=== PATIENT | male | born 1970 | race Caucasian/White ===

== ENCOUNTER 2020-05-31 04:00 | Emergency (ER) | payer MEDICARE, MEDICAID, SELFPAY ==
--- NOTE | ~2020-05-31 | XR_ITS ---
EXAMINATION: XR forearm LT 2V INDICATION: Left forearm pain TECHNIQUE: Two views of the left forearm are obtained. COMPARISON: None available FINDINGS: There is no fracture, dislocation, or subluxation. The bones and joint spaces are normal. T here is mild soft tissue swelling of the forearm. IMPRESSION: 1. Soft tissue swelling without acute osseous abnormality. Reviewed, dictated and finalized at location A. [facility]
[2020-05-31 04:09] VITALS: BP 225/106; PULSE 97; RESP 20; O2SAT 97
[2020-05-31] MEDS: TETANUS,DIPHTHERIA,AC PERTUSSIS ADULT (0.5 ML) BOOSTRIX IM (04:26)
--- NOTE | 2020-05-31 04:27 | ED.GENADULT ---
HPI - General Adult General Chief complaint: Unspecified Stated complaint: fell on ice 1 week ago, sore throat Time Seen by Provider: 05/31/20 04:03 Source: patient Mode of arrival: ambulatory Limitations: no limitations History of Present Illness HPI narrative: This patient is a 49 year old male who presents for evaluation of his left arm after a fell. He states last week he fell due to slipping on ice. He hits his left forearm. He reports his left forearm has been bruised but it is resolving. He reports mild tenderness but it is improving. He states he has history of bursitis so he wanted to get checked since he never sought evaluation after the fall. He states he never had pain or swelling to his elbow but he wanted to make sure he does not have bursiting. He denies LOC due to fall. He also states he has sore throat whenever he vapes so he wanted to get checked out since he was in ER. He denies pain with swallowing. HE denies fever or chills. He denies cough, sob, URI. He denies sore throat currently. Last tetanus was 10 years ago. Related Data Allergies Allergy/AdvReac Type Severity Reaction Status Date / Time No Known Allergies Allergy Unknown Verified 10/30/19 10:52 No Known Allergies Allergy Uncoded 10/30/19 10:52 Review of Systems Review of Systems: All systems reviewed & are unremarkable except as noted in HPI and below ENT: Denies hoarseness and Denies lip swelling Cardiovascular: Cardiovascular: Denies chest pain at rest and Denies chest pain with activity Respiratory: Respiratory: Reports no additional respiratory complaints Gastrointestinal: Gastrointestinal: Reports no additional gastrointestinal complaints PMFSH Past Medical History Medical History (Updated 05/31/20 @ 04:45 by Wanda Davis MD) Hypertension Panic disorder Surgical History Surgical History (Updated 05/31/20 @ 04:39 by Wanda Davis MD) Hx of appendectomy Social History Social History (Updated 05/31/20 @ 04:39 by Wanda Davis MD) Tobacco type: e-cigarettes/vaping Exam Narrative: Exam Narrative: GENERAL: Well-appearing, well-nourished, and in no acute distress. HEAD: Normocephalic, atraumatic EYES: PERRLA and EOMI, conjunctiva clear without discharge THROAT:Mucous membranes moist, Oropharynx normal without erythema, exudate, peritonsillar swelling or fluctuance NECK: Supple, without lymphadenopathy or mass RESPIRATORY: No respiratory distress, Airway patent, Respirations non-labored, Clear to auscultation without rales, rhonchi or wheeze HEART: Regular rate and rhythm. No murmur heard. Normal peripheral pulses. ABDOMEN: Soft, nontender, nondistended, normal active bowel sounds. No masses. No rebound or guarding, No organomegaly. EXTREMITIES: No edema, normal strength with full range of motion. left forearm dorsum with ecchymosis and scabbed over healing wound, no surrounding erythema, no swelling at elbow, no tenderness or erythema at elbow. SKIN: Warm, dry, normal color without rash NEURO: Alert and oriented x3. CN 2-12 grossly intact. No focal deficits. PSYCH: Normal mood , anxious HENMT: Ears: TM abnormal obstructed by cerumen Course Reevaluation(s) Reevaluation #1: Patient has hypertension. HE states his blood pressure is high because he is anxious Date: 05/31/20 Time: 04:10 Vital Signs Vital signs: Vital Signs Pulse Rate 97 05/31/20 04:09 Respiratory Rate 20 05/31/20 04:09 Blood Pressure 225/106 H 05/31/20 04:09 Pulse Oximetry 97 05/31/20 04:09 Pulse Rate 87 05/31/20 04:53 Respiratory Rate 20 05/31/20 04:53 Blood Pressure 177/109 H 05/31/20 04:53 Pulse Oximetry 98 05/31/20 04:53 Medical Decision Making Vital Signs Vital Signs: Vital Signs Pulse Rate 97 05/31/20 04:09 Respiratory Rate 20 05/31/20 04:09 Blood Pressure 225/106 H 05/31/20 04:09 Pulse Oximetry 97 05/31/20 04:09 Pulse Rate 87 05/31/20 04:53
[2020-05-31 04:53] VITALS: BP 177/109; PULSE 87; RESP 20; O2SAT 98
== END 2020-05-31 05:11 | disposition home or self-care (01) ==
PROVIDERS: Emergency Provider General Practice; PCP Student in an Organized Health Care Education/Training Program
DX: S50.12XA Contusion of left forearm, initial encounter (principal); J02.9 Acute pharyngitis, unspecified; F17.290 Nicotine dependence, other tobacco product, uncomplicated; W00.0XXA Fall on same level due to ice and snow, initial encounter; Z23 Encounter for immunization; I10 Essential (primary) hypertension
CPT/HCPCS: 73090; 87880; 90471; 90715; 99283

== ENCOUNTER 2021-08-01 23:39 | Emergency (ER) | payer MEDICARE, MEDICAID, SELFPAY ==
--- NOTE | ~2021-08-01 | XR_ITS ---
EXAMINATION: XR chest 2V DATE: 08/02/2021 00:43 INDICATION: Shortness of breath TECHNIQUE: PA and lateral views of the chest were obtained. COMPARISON: Chest radiograph dated 05/21/2015 FINDINGS: Minimal streaky atelectasis at the lung bases. No pulmonary edema, pleural effusion or pneumothorax. IMPRESSION: 1. Minimal streaky bibasilar atelectasis. Reviewed, dictated and finalized at location A.
[2021-08-01 23:46] VITALS: BP 152/97; PULSE 76; RESP 20; TEMP 36.6; O2SAT 98
--- NOTE | 2021-08-01 23:47 | ECG_ITS ---
Measurements Intervals [place] Rate: 76 P: 62 [place]: 164 QRS: 37 QRSD: 88 T: -4 QT: 385 QTc: 434 Interpretive Statements SINUS RHYTHM NORMAL ECG NO PREVIOUS ECG AVAILABLE FOR COMPARISON Electronically Signed On 08-02-2021 7:31:09 CDT by Asher Pérez M.D.
[2021-08-01 23:54] VITALS: PULSE 73
[2021-08-01 23:57] VITALS: O2SAT 98
[2021-08-02 00:37] LABS: Basophils Absolute Auto 0.1 K/mm3 (0.0-0.1); Basophils Percent Auto 0.7 % (0.2-1.2); Eosinophils Absolute Auto 0.2 K/mm3 (0-0.3); Eosinophils Percent Auto 1.4 % (0-4.4); Hematocrit 48.1 % (42.0-52.0); Hemoglobin 16.3 g/dL (14.0-18.0); Immature Granulocyte Absolute 0.09 K/mm3 (0.00-0.031); Immature Granulocyte Percent A 0.7 % (0-0.5); Lymphocytes Absolute Auto 4.93 K/mm3 (0.9-3.2); Lymphocytes Percent Auto 38.1 % (18.3-44.2); Mean Corpuscular HGB Conc 33.9 g/dl (32-36); Mean Corpuscular Hemoglobin 33.5 pg (26-34); Mean Corpuscular Volume 98.8 fl (80-100); Mean Platelet Volume 11.2 fl (7.4-10.4); Monocytes Absolute Auto 0.8 K/mm3 (0.1-0.6); Neutrophils Absolute Auto 6.9 K/mm3 (1.3-6.7); Neutrophils Percent Auto 53.1 % (45.5-73.1); Platelet Count Result 297 k/mm3 (150-375); Red Blood Count 4.87 M/mm3 (4.6-6.20); Red Cell Distribution Width 12.3 % (11.5-14.5); White Blood Count 12.9 K/mm3 (4.5-10.0)
[2021-08-02 00:51] LABS: Alanine Aminotransferase 115 U/L (4-50); Albumin Level 4.7 g/dL (3.5-5.1); Alkaline Phosphatase 109 U/L (38-126); Anion Gap 10 mmol/L (8-16); Aspartate Amino Transferase 73 U/L (17-59); Bilirubin,Total 0.4 mg/dL (0.2-1.3); Blood Urea Nitrogen 14 mg/dL (9-20); Calcium 9.4 mg/dL (8.4-10.2); Carbon Dioxide 25 mmol/L (22-30); Chloride 105 mmol/L (98-107); Estimated CRCL calculation 98 ml/min; Estimated Glomerular Filt Rate > 60; Glucose 106 mg/dL (65-110); Potassium 3.8 mmol/L (3.4-5.0); Sodium 140 mmol/L (137-145)
[2021-08-02 01:03] LABS: Troponin I < 0.012 ng/mL (0.000-0.034)
[2021-08-02] MEDS: LORazepam (*CRX) 0.5 MG TABLET PO (01:27)
[2021-08-02 01:32] VITALS: BP 165/83; PULSE 88; RESP 20; O2SAT 96
--- NOTE | 2021-08-02 01:36 | ED.SOB ---
HPI - SOB/Dyspnea General Chief Complaint: Shortness of Breath/Dyspnea Stated Complaint: Difficulty breathing Time Seen by Provider: 08/01/21 23:58 Source: patient History of Present Illness HPI Narrative: Patient presents with shortness of breath. Reports that shortness of breath throughout the day he his anxiety medication and does not seem to be helping so he came to the ER for further evaluation. Reports a history of anxiety and feels like his shortness of breath is related to his anxiety and panic attacks. Denies any chest pain lightheadedness or dizziness he describes a sensation of not being able to get enough air. Denies any recent cough, congestion, fevers. Reports he was in his usual state of today. Is unable to identify any clear stressors or aggravators for his symptoms today. Related Data Home Medications Medication Instructions Recorded Confirmed citalopram 40 mg tablet 40 mg PO DAILY 06/21/20 08/02/21 clonazepam 1 mg tablet 1 mg PO TID 06/21/20 08/02/21 metoprolol succinate 100 mg 100 mg PO DAILY 06/21/20 08/02/21 tablet,extended release 24 hr olanzapine 10 mg tablet 10 mg PO DAILY 06/21/20 08/02/21 Allergies Allergy/AdvReac Type Severity Reaction Status Date / Time No Known Allergies Allergy Unknown Verified 06/20/20 09:13 No Known Allergies Allergy Uncoded 06/20/20 09:13 Review of Systems Review of Systems: CONSTITUTIONAL: Denies fever, chills, or sweats. EYES: Denies visual changes, redness, or discharge. ENT: Denies rhinorrhea, congestion, sore throat, or otalgia. CARDIOVASCULAR: Denies chest pain, palpitations, or edema. RESPIRATORY: Denies cough. GASTROINTESTINAL: Denies abdominal pain, nausea, vomiting, or diarrhea. GENITOURINARY: Denies dysuria or hematuria. SKIN: Denies rash or itching. MUSCULOSKELETAL: Denies back pain, joint pain, or myalgia. NEUROLOGIC: Denies headache, numbness, dizziness, or weakness. PSYCHIATRIC: Reports feeling anxious All systems reviewed & are unremarkable except as noted in HPI and below PMFSH Past Medical History Medical History Hypertension Panic disorder Surgical History Surgical History Hx of appendectomy Social History Social History Smoking status: Current every day smoker Tobacco type: e-cigarettes/vaping Alcohol intake: never Substance use: never Substance use type: does not use Course Reevaluation(s) Reevaluation #1: Patient is feeling much better chest x-ray read is pending patient refused to wait for results and left AMA. Vital Signs Vital signs: Vital Signs Temperature 36.6 C 08/01/21 23:46 Pulse Rate 76 08/01/21 23:46 Respiratory Rate 20 08/01/21 23:46 Blood Pressure 152/97 H 08/01/21 23:46 Pulse Oximetry 98 08/01/21 23:46 Temperature 36.6 C 08/01/21 23:46 Pulse Rate 88 08/02/21 01:32 Respiratory Rate 20 08/02/21 01:32 Blood Pressure 165/83 H 08/02/21 01:32 Pulse Oximetry 96 08/02/21 01:32 MDM - SOB/Dyspnea MDM Narrative Medical decision making narrative: H&P as above, vss, pt looks clinically well, exam with clear lungs, labs clinically unremarkable, img without acute process, additional labs/img considered, symptomatic relief available as needed, on reevaluation pt continues to looks clinically well. Suspect symptoms were related to anxiety, dns severe sepsis, severe dehydration, PE, dissection. Lab Data Result diagrams: 08/02/21 00:31 08/02/21 00:31 Labs: Lab Results 08/02/21 08/02/21 Range/Units 00:31 00:31 WBC 12.9 H (4.5-10.0) K/mm3 RBC 4.87 (4.6-6.20) M/mm3 Hgb 16.3 (14.0-18.0) g/dL Hct 48.1 (42.0-52.0) % MCV 98.8 (80-100) fl MCH 33.5 (26-34) pg MCHC 33.9 (32-36) g/dl RDW 12.3 (11.5-14.5) % Plt Count 297 (150-375) k/mm3 MPV 11.2 H (7.4-10
--- NOTE | 2021-08-02 01:42 | PC.NURSE ---
Pt requesting to leave pt states I just want to get home to my bed . RN informed MD of pt's request MD is waiting on the chest xray. RN informed pt of testing still to result pt does not want to wait. RN gave risk to pt and including risk of increased anxiety, increased sob, with testing still to result possible . Pt understands and repeats risk to RN. Pt aox3 going to [address] home.
== END 2021-08-02 01:45 | disposition left against medical advice (07) ==
LOC: ANHED 08-02 00:14
PROVIDERS: Emergency Provider Emergency Medicine; PCP Student in an Organized Health Care Education/Training Program
DX: R06.02 Shortness of breath (principal); I10 Essential (primary) hypertension; F41.0 Panic disorder [episodic paroxysmal anxiety]; F17.290 Nicotine dependence, other tobacco product, uncomplicated
CPT/HCPCS: 36415; 71046; 80053; 84484; 85025; 93005; 99284; A9270

== ENCOUNTER 2021-10-06 13:07 | Emergency (ER) | payer MEDICARE, MEDICAID, SELFPAY ==
--- NOTE | ~2021-10-06 | XR_ITS ---
EXAMINATION: XR chest 2V DATE: 10/06/2021 14:12 INDICATION: Shortness of breath. TECHNIQUE: Frontal and lateral views of the chest were obtained. COMPARISON: Chest 2 views 08/02/2021, CT abdomen and pelvis 05/21/2015 FINDINGS: The chest demonstrates clear lungs without pneumonia, pleural effusion, or pneumothorax. Th e heart size is normal. IMPRESSION: 1. No acute cardiopulmonary disease. Reviewed, dictated and finalized at location A.
[2021-10-06 13:23] VITALS: BP 144/93; PULSE 88; RESP 18; TEMP 36.6; O2SAT 98
--- NOTE | 2021-10-06 13:27 | ECG_ITS ---
Measurements Intervals [place] Rate: 81 P: 58 [place]: 152 QRS: 50 QRSD: 83 T: 31 QT: 367 QTc: 426 Interpretive Statements SINUS RHYTHM BORDERLINE T WAVE ABNORMALITY- INFERIOR LEADS BORDERLINE ECG Electronically Signed On 10-06-2021 13:34:00 CDT by Thaddeus Damian D.O.
[2021-10-06 13:51] LABS: Basophils Absolute Auto 0.1 K/mm3 (0.0-0.1); Basophils Percent Auto 0.5 % (0.2-1.2); Eosinophils Absolute Auto 0.1 K/mm3 (0-0.3); Eosinophils Percent Auto 1.3 % (0-4.4); Hematocrit 44.8 % (42.0-52.0); Hemoglobin 15.8 g/dL (14.0-18.0); Immature Granulocyte Absolute 0.07 K/mm3 (0.00-0.031); Immature Granulocyte Percent A 0.7 % (0-0.5); Lymphocytes Absolute Auto 2.59 K/mm3 (0.9-3.2); Lymphocytes Percent Auto 25.3 % (18.3-44.2); Mean Corpuscular HGB Conc 35.3 g/dl (32-36); Mean Corpuscular Hemoglobin 33.3 pg (26-34); Mean Corpuscular Volume 94.3 fl (80-100); Mean Platelet Volume 10.6 fl (7.4-10.4); Monocytes Absolute Auto 0.8 K/mm3 (0.1-0.6); Monocytes Percent Auto 7.6 % (2.6-8.5); Neutrophils Absolute Auto 6.6 K/mm3 (1.3-6.7); Neutrophils Percent Auto 64.6 % (45.5-73.1); Platelet Count Result 219 k/mm3 (150-375); Red Blood Count 4.75 M/mm3 (4.6-6.20); Red Cell Distribution Width 12.2 % (11.5-14.5); White Blood Count 10.2 K/mm3 (4.5-10.0)
[2021-10-06 13:56] LABS: Alanine Aminotransferase 68 U/L (6-50); Albumin Level 4.7 g/dL (3.5-5.1); Alkaline Phosphatase 101 U/L (38-126); Anion Gap 9 mmol/L (8-16); Aspartate Amino Transferase 44 U/L (17-59); Bilirubin,Total 0.5 mg/dL (0.2-1.3); Blood Urea Nitrogen 12 mg/dL (9-20); Calcium 9.3 mg/dL (8.4-10.2); Carbon Dioxide 25 mmol/L (22-30); Chloride 103 mmol/L (98-107); Estimated CRCL calculation 136 ml/min; Estimated Glomerular Filt Rate > 60; Glucose 102 mg/dL (65-110); Potassium 4.4 mmol/L (3.4-5.0); Sodium 137 mmol/L (137-145)
[2021-10-06 15:18] VITALS: BP 165/98; PULSE 111; RESP 18; TEMP 36.4; O2SAT 93
--- NOTE | 2021-10-06 16:02 | PC.NURSE ---
called at 1600, no answer.
== END 2021-10-06 16:14 | disposition left against medical advice (07) ==
LOC: ANHED 16:13
PROVIDERS: Emergency Provider Emergency Medicine; PCP Student in an Organized Health Care Education/Training Program
DX: R06.02 Shortness of breath (principal)
CPT/HCPCS: 36415; 71046; 80053; 85025; 93005; 99199

== ENCOUNTER 2021-10-06 16:41 | Emergency (ER) | payer MEDICARE, MEDICAID, SELFPAY ==
[2021-10-06] VITALS (11 sets, daily range): BP systolic 149–174; BP diastolic 68–103; PULSE 75–81; RESP 14–26; TEMP 36.2; O2SAT 95–100
--- NOTE | ~2021-10-06 | XR_ITS ---
EXAMINATION: XR chest 2V DATE: 10/06/2021 19:18 INDICATION: Shortness of breath. TECHNIQUE: Frontal and lateral views of the chest were obtained. COMPARISON: Chest 2 views 10/06/2021, CT abdomen and pelvis 05/21/2015 FINDINGS: The chest demonstrates clear lungs without pneumonia, pleural effusion, or pneumothorax. Th e heart size is normal. IMPRESSION: 1. No acute cardiopulmonary disease. Reviewed, dictated and finalized at location A.
--- NOTE | 2021-10-06 18:58 | ED.GENADULT ---
HPI - General Adult General Chief complaint: Shortness of Breath/Dyspnea <ANURAG Paz Last Filed: 10/07/21 03:32> Stated complaint: shortness of breath <ANURAG Paz Last Filed: 10/07/21 03:32> Time Seen by Provider: 10/06/21 18:41 <ANURAG Paz Last Filed: 10/07/21 03:32> Source: patient, family and old records reviewed <ANURAG Paz Last Filed: 10/07/21 03:32> Mode of arrival: ambulatory <ANURAG Paz Last Filed: 10/07/21 03:32> Limitations: no limitations <ANURAG Paz Last Filed: 10/07/21 03:32> History of Present Illness HPI narrative: Patient is a 51-year-old male who presents to the ED via EMS with report of anxiety and shortness of breath. Patient has a history of severe anxiety and a mood disorder to which he is disabled. Family member at bedside reports over the last 2 and half years he has been struggling with severe anxiety with breathing episodes and can hardly leave the house or drive a car. He takes Celexa and Zyprexa daily. Also takes Klonopin 3 times a day. He states he has been taking this as directed for his anxiety, but denies any improvement. He reports feeling like he cannot breathe due to his anxiety. Denies pain with taking a deep breath. Denies any identifiable stressors or causes of his increased anxiety today. Denies any chest pain, recent cough or cold symptoms, abdominal pain, nausea, vomiting, fever, chills, headache. Per patient's records, he was seen in the ED in July for similar symptoms. He was given PO Ativan and felt better. He left AMA at that time. <ANURAG Paz Last Filed: 10/07/21 03:32> Related Data Home medications: Home Medications Medication Instructions Recorded Confirmed citalopram 40 mg tablet 40 mg PO DAILY 06/21/20 08/02/21 clonazepam 1 mg tablet 1 mg PO TID 06/21/20 08/02/21 metoprolol succinate 100 mg 100 mg PO DAILY 06/21/20 08/02/21 tablet,extended release 24 hr olanzapine 10 mg tablet 10 mg PO DAILY 06/21/20 08/02/21 <Ramona Anglin PA-C - Last Filed: 10/07/21 03:32> Allergies/adverse reactions: Allergies Allergy/AdvReac Type Severity Reaction Status Date / Time No Known Allergies Allergy Unknown Verified 06/20/20 09:13 No Known Allergies Allergy Uncoded 06/20/20 09:13 <Ramona Anglin PA-C - Last Filed: 10/07/21 03:32> Review of Systems Review of Systems: CONSTITUTIONAL: Denies fever, chills. ENT: Denies rhinorrhea, congestion. CARDIOVASCULAR: Denies chest pain. RESPIRATORY: Reports difficulty breathing. Denies pain with inspiration, cough. GASTROINTESTINAL: Denies abdominal pain, nausea, vomiting, or diarrhea. GENITOURINARY: Denies dysuria or hematuria. MUSCULOSKELETAL: Denies back pain. NEUROLOGIC: Denies headache. PSYCHIATRIC: Reports severe anxiety. Denies depression. <Ramona Anglin PA-C - Last Filed: 10/07/21 03:32> All systems reviewed & are unremarkable except as noted in HPI and below <Ramona Anglin PA-C - Last Filed: 10/07/21 03:32> [facility] Past Medical History Medical History: Medical History Anxiety Hypertension Mood disorder Panic disorder <Ramona Anglin PA-C - Last Filed: 10/07/21 03:32> Surgical History Surgical History: Surgical History Hx of appendectomy <Ramona Anglin PA-C - Last Filed: 10/07/21 03:32> Social History Social History: Social History Smoking status: Current every day smoker Tobacco type: e-cigarettes/vaping Alcohol intake: never Substance use: never Substance use type: does not use <Ramona Anglin PA-C - Last Filed: 10/07/21 03:32> Exam Narrative: GENERAL: Very anxious appearing, well-nourished, non-toxic, in no acute distress. HEAD: Normocephalic, atraumatic. NECK: Supple. No estrella
--- NOTE | 2021-10-06 19:05 | ECG_ITS ---
Measurements Intervals [place] Rate: 74 P: 47 ND: 136 QRS: 54 QRSD: 86 T: 44 QT: 374 QTc: 417 Interpretive Statements SINUS RHYTHM BASELINE ARTIFACT- I, II, III, AVR, AVL, AVF BORDERLINE ECG Electronically Signed On 10-06-2021 20:41:34 CDT by Thaddeus Damian D.O.
[2021-10-06] MEDS: LORazepam (*CRX) 0.5 MG TABLET PO (19:34)
[2021-10-06 19:36] LABS: Basophils Absolute Auto 0.1 K/mm3 (0.0-0.1); Basophils Percent Auto 0.5 % (0.2-1.2); Eosinophils Absolute Auto 0.2 K/mm3 (0-0.3); Eosinophils Percent Auto 1.3 % (0-4.4); Hematocrit 47.1 % (42.0-52.0); Immature Granulocyte Absolute 0.07 K/mm3 (0.00-0.031); Immature Granulocyte Percent A 0.5 % (0-0.5); Lymphocytes Absolute Auto 3.15 K/mm3 (0.9-3.2); Lymphocytes Percent Auto 24.7 % (18.3-44.2); Mean Corpuscular Hemoglobin 32.5 pg (26-34); Mean Corpuscular Volume 95.5 fl (80-100); Mean Platelet Volume 10.6 fl (7.4-10.4); Monocytes Absolute Auto 0.7 K/mm3 (0.1-0.6); Monocytes Percent Auto 5.4 % (2.6-8.5); Neutrophils Absolute Auto 8.6 K/mm3 (1.3-6.7); Neutrophils Percent Auto 67.6 % (45.5-73.1); Platelet Count Result 259 k/mm3 (150-375); Red Blood Count 4.93 M/mm3 (4.6-6.20); Red Cell Distribution Width 12.5 % (11.5-14.5); White Blood Count 12.8 K/mm3 (4.5-10.0)
[2021-10-06 19:45] LABS: Alanine Aminotransferase 73 U/L (6-50); Albumin Level 5.1 g/dL (3.5-5.1); Alkaline Phosphatase 111 U/L (38-126); Anion Gap 11 mmol/L (8-16); Aspartate Amino Transferase 45 U/L (17-59); Bilirubin,Total 0.5 mg/dL (0.2-1.3); Blood Urea Nitrogen 11 mg/dL (9-20); Calcium 9.7 mg/dL (8.4-10.2); Carbon Dioxide 24 mmol/L (22-30); Chloride 102 mmol/L (98-107); Estimated CRCL calculation 136 ml/min; Estimated Glomerular Filt Rate > 60; Glucose 93 mg/dL (65-110); Potassium 4.2 mmol/L (3.4-5.0); Sodium 137 mmol/L (137-145)
[2021-10-06 19:57] LABS: Troponin I < 0.012 ng/mL (0.000-0.034)
== END 2021-10-06 20:22 | disposition home or self-care (01) ==
PROVIDERS: Physician Assistant; Emergency Provider Emergency Medicine; PCP Student in an Organized Health Care Education/Training Program
DX: F41.9 Anxiety disorder, unspecified (principal); R06.81 Apnea, not elsewhere classified; F39 Unspecified mood [affective] disorder; I10 Essential (primary) hypertension; F17.290 Nicotine dependence, other tobacco product, uncomplicated
CPT/HCPCS: 36415; 71046; 80053; 84484; 85025; 93005; 99199; 99284; A9270

== ENCOUNTER 2021-10-06 22:01 | Emergency (ER) | payer MEDICARE, MEDICAID, SELFPAY ==
[2021-10-06 22:03] VITALS: BP 167/93; PULSE 94; RESP 14; TEMP 36.2; O2SAT 99
== END 2021-10-06 22:40 | disposition left against medical advice (07) ==
LOC: ANHED 22:11
PROVIDERS: PCP Student in an Organized Health Care Education/Training Program
DX: R06.02 Shortness of breath (principal)
CPT/HCPCS: 99199

== ENCOUNTER 2021-10-11 16:19 | Emergency (ER) | payer MEDICARE, MEDICAID, SELFPAY ==
--- NOTE | 2021-10-11 16:34 | PC.NURSE ---
Pt mother ambulatory to intake desk and reports He is going to try and manage it himself at home. Pt ambulatory out of w/r w/ mother with NAD noted, steady gait.
== END 2021-10-11 16:42 | disposition left against medical advice (07) ==
PROVIDERS: PCP Student in an Organized Health Care Education/Training Program
DX: Z53.21 Procedure and treatment not carried out due to patient leaving prior to being seen by health care provider (principal)
CPT/HCPCS: 99199

== ENCOUNTER 2021-10-12 01:06 | Emergency (ER) | payer MEDICARE, MEDICAID, SELFPAY ==
--- NOTE | ~2021-10-12 | XR_ITS ---
EXAMINATION: XR chest 2V DATE: 10/12/2021 02:44 INDICATION: Cough. Shortness of breath. TECHNIQUE: Frontal and lateral views of the chest were obtained. COMPARISON: Chest 2 views 10/06/2021, CT abdomen and pelvis 05/21/2015 FINDINGS: The chest demonstrates clear lungs without pneumonia, pleural effusion, or pneumothorax. Th e heart size is normal. IMPRESSION: 1. No acute cardiopulmonary disease. Reviewed, dictated and finalized at location A.
[2021-10-12 01:08] VITALS: BP 171/99; PULSE 80; RESP 20; TEMP 36.2; O2SAT 98
[2021-10-12 02:02] VITALS: BP 146/92; PULSE 80; RESP 20; O2SAT 98
[2021-10-12 02:03] VITALS: BP 146/92; PULSE 78; RESP 20; TEMP 36.7; O2SAT 96
--- NOTE | 2021-10-12 02:03 | ECG_ITS ---
Measurements Intervals [place] Rate: 77 P: 52 [place]: 165 QRS: 38 QRSD: 77 T: 26 QT: 355 QTc: 404 Interpretive Statements SINUS RHYTHM BASELINE ARTIFACT- I, II, III, AVR, AVL NORMAL ECG Electronically Signed On 10-12-2021 6:34:40 CDT by Thaddeus Damian D.O.
--- NOTE | 2021-10-12 02:36 | ED.ANXIETY ---
HPI - Anxiety General Chief Complaint: Anxiety Stated Complaint: anxiety/sob x several years Time Seen by Provider: 10/12/21 02:03 History of Present Illness HPI narrative: Patient is a 51-year-old male complaining of I am having a panic attack started this morning, woke him up from sleep. States that he has a history of anxiety and panic attacks in the past. Patient describes his attack as waking up short of breath. Patient was seen here last week for similar complaints. Patient states that he ran out of his anxiety medication clonazepam. Patient denies any chest pain, abdominal pain, nausea, vomiting, diaphoresis, fever or chills. Related Data Home Medications Medication Instructions Recorded Confirmed citalopram 40 mg tablet 40 mg PO DAILY 06/21/20 08/02/21 clonazepam 1 mg tablet 1 mg PO TID 06/21/20 08/02/21 metoprolol succinate 100 mg 100 mg PO DAILY 06/21/20 08/02/21 tablet,extended release 24 hr olanzapine 10 mg tablet 10 mg PO DAILY 06/21/20 08/02/21 Allergies Allergy/AdvReac Type Severity Reaction Status Date / Time No Known Allergies Allergy Unknown Verified 06/20/20 09:13 No Known Allergies Allergy Uncoded 06/20/20 09:13 Review of Systems Review of Systems: All systems reviewed & are unremarkable except as noted in HPI and below Constitutional: Constitutional: Denies body ache(s), Denies chills, Denies excessive sweating, Denies fatigue, Denies fever(s), Denies headache(s), Denies lethargy, Denies malaise, Denies weakness and Denies weight loss Eyes: Eyes: Denies blurry vision, Denies change in vision and Denies loss of vision ENT: Denies dizziness, Denies ear discharge, Denies headache(s), Denies lip swelling, Denies epistaxis, Denies nasal congestion, Denies neck pain, Denies throat swelling and Denies tongue swelling Cardiovascular: Cardiovascular: Denies chest pain, Denies chest pain at rest, Denies chest pain with activity, Denies diaphoresis, Denies rapid heart rate, Denies edema, Denies irregular heart rhythm, Denies lightheadedness, Denies palpitations, Denies dyspnea and Denies dyspnea on exertion Respiratory: Respiratory: Denies chest congestion, Denies cough and Denies hemoptysis Gastrointestinal: Gastrointestinal: Denies abdominal pain, Denies melena, Denies hematochezia, Denies diarrhea, Denies nausea, Denies vomiting and Denies hematemesis Musculoskeletal: Musculoskeletal: Denies abnormal gait, Denies deformity, Denies joint swelling, Denies limited range of motion, Denies neck pain and Denies numbness Neurologic: Denies Abnormal speech present, Denies abnormal gait, Denies confusion, Denies dizziness, Denies headache(s), Denies focal weakness, Denies loss of vision, Denies numbness, Denies Other visual disturbances, Denies Sensory deficit (Neuro) and Denies weakness Psychiatric: Psychiatric: Denies confusion, Denies depression, Denies auditory hallucinations, Denies homicidal ideation and Denies suicidal ideation Endocrine: Endocrine: Denies cold intolerance, Denies excessive sweating, Denies fatigue, Denies heat intolerance and Denies palpitations Hematologic/Lymphatic: Hematologic/Lymphatic: Denies easy bleeding and Denies easy bruising Allergic/Immunologic: Allergic/Immunologic: Denies lip swelling, Denies throat swelling and Denies tongue swelling PMFSH Past Medical History Medical History Anxiety Hypertension Mood disorder Panic disorder Surgical History Surgical History Hx of appendectomy Social History Social History Smoking status: Current every day smoker Tobacco type: e-cigarettes/vaping Alcohol intake: never Substance use: never Substance use type: does not use Exam Const: General: cooperative, healthy appearing, comfortable, no acute distress, well developed, alert and awake; No confusio
[2021-10-12] MEDS: LORazepam (*CRX) 1 MG TABLET PO (02:57)
[2021-10-12 03:04] LABS: Basophils Absolute Auto 0.1 K/mm3 (0.0-0.1); Basophils Percent Auto 0.6 % (0.2-1.2); Eosinophils Absolute Auto 0.2 K/mm3 (0-0.3); Eosinophils Percent Auto 1.2 % (0-4.4); Hematocrit 48.8 % (42.0-52.0); Hemoglobin 16.4 g/dL (14.0-18.0); Immature Granulocyte Absolute 0.07 K/mm3 (0.00-0.031); Immature Granulocyte Percent A 0.5 % (0-0.5); Lymphocytes Absolute Auto 3.94 K/mm3 (0.9-3.2); Lymphocytes Percent Auto 28.1 % (18.3-44.2); Mean Corpuscular HGB Conc 33.6 g/dl (32-36); Mean Corpuscular Hemoglobin 32.4 pg (26-34); Mean Corpuscular Volume 96.4 fl (80-100); Mean Platelet Volume 11.2 fl (7.4-10.4); Monocytes Percent Auto 6.8 % (2.6-8.5); Neutrophils Absolute Auto 8.8 K/mm3 (1.3-6.7); Neutrophils Percent Auto 62.8 % (45.5-73.1); Platelet Count Result 284 k/mm3 (150-375); Red Blood Count 5.06 M/mm3 (4.6-6.20); Red Cell Distribution Width 12.6 % (11.5-14.5)
[2021-10-12 03:08] LABS: Anion Gap 11 mmol/L (8-16); Blood Urea Nitrogen 11 mg/dL (9-20); Calcium 9.6 mg/dL (8.4-10.2); Carbon Dioxide 24 mmol/L (22-30); Chloride 102 mmol/L (98-107); Estimated CRCL calculation 143 ml/min; Estimated Glomerular Filt Rate > 60; Glucose 101 mg/dL (65-110); Potassium 4.2 mmol/L (3.4-5.0); Sodium 137 mmol/L (137-145)
[2021-10-12 03:20] LABS: Troponin I < 0.012 ng/mL (0.000-0.034)
== END 2021-10-12 03:42 | disposition home or self-care (01) ==
LOC: ANHED 02:46
PROVIDERS: Emergency Provider Emergency Medicine; PCP Student in an Organized Health Care Education/Training Program
DX: F41.0 Panic disorder [episodic paroxysmal anxiety] (principal); I10 Essential (primary) hypertension; F39 Unspecified mood [affective] disorder; F17.290 Nicotine dependence, other tobacco product, uncomplicated
CPT/HCPCS: 36415; 71046; 80048; 84484; 85025; 93005; 99283; 99284; A9270

== ENCOUNTER 2021-10-12 04:53 | Emergency (ER) | payer MEDICARE, MEDICAID, SELFPAY ==
[2021-10-12 05:01] VITALS: BP 135/88; PULSE 86; RESP 16; TEMP 36.4; O2SAT 98
--- NOTE | 2021-10-12 05:56 | ED.ANXIETY ---
HPI - Anxiety General Chief Complaint: Anxiety Stated Complaint: anxiety and sob Time Seen by Provider: 10/12/21 05:56 History of Present Illness HPI narrative: Patient is a 51-year-old male complaining of having another panic attack described as unable to breathe Patient was seen here a few hours ago for similar complaints, symptoms resolved after he was given Ativan and now states that it has recurred. Patient states that he ran out of his clonazepam for his anxiety, started to feel anxious I did not have anything to take and I could not sleep and that is why he is here again. Patient denies any suicidal or homicidal thoughts. Related Data Home Medications Medication Instructions Recorded Confirmed citalopram 40 mg tablet 40 mg PO DAILY 06/21/20 08/02/21 clonazepam 1 mg tablet 1 mg PO TID 06/21/20 08/02/21 metoprolol succinate 100 mg 100 mg PO DAILY 06/21/20 08/02/21 tablet,extended release 24 hr olanzapine 10 mg tablet 10 mg PO DAILY 06/21/20 08/02/21 Allergies Allergy/AdvReac Type Severity Reaction Status Date / Time No Known Allergies Allergy Unknown Verified 06/20/20 09:13 No Known Allergies Allergy Uncoded 06/20/20 09:13 Review of Systems Review of Systems: All systems reviewed & are unremarkable except as noted in HPI and below Constitutional: Constitutional: Denies body ache(s), Denies chills, Denies excessive sweating, Denies fatigue, Denies fever(s), Denies headache(s), Denies lethargy, Denies malaise, Denies weakness and Denies weight loss Eyes: Eyes: Denies blurry vision, Denies change in vision and Denies loss of vision ENT: Denies dizziness, Denies ear discharge, Denies headache(s), Denies lip swelling, Denies epistaxis, Denies nasal congestion, Denies neck pain, Denies throat swelling and Denies tongue swelling Cardiovascular: Cardiovascular: Denies chest pain, Denies chest pain at rest, Denies chest pain with activity, Denies diaphoresis, Denies rapid heart rate, Denies edema, Denies irregular heart rhythm, Denies lightheadedness, Denies palpitations, Denies dyspnea and Denies dyspnea on exertion Respiratory: Respiratory: Denies chest congestion, Denies cough, Denies hemoptysis and Denies dyspnea on exertion Gastrointestinal: Gastrointestinal: Denies abdominal pain, Denies melena, Denies hematochezia, Denies diarrhea, Denies nausea, Denies vomiting and Denies hematemesis Musculoskeletal: Musculoskeletal: Denies abnormal gait, Denies deformity, Denies joint swelling, Denies limited range of motion, Denies neck pain and Denies numbness Neurologic: Denies Abnormal speech present, Denies abnormal gait, Denies confusion, Denies dizziness, Denies headache(s), Denies focal weakness, Denies loss of vision, Denies numbness, Denies Other visual disturbances, Denies Sensory deficit (Neuro) and Denies weakness Psychiatric: Psychiatric: Denies confusion, Denies depression, Denies auditory hallucinations, Denies homicidal ideation and Denies suicidal ideation Endocrine: Endocrine: Denies cold intolerance, Denies excessive sweating, Denies fatigue, Denies heat intolerance and Denies palpitations Hematologic/Lymphatic: Hematologic/Lymphatic: Denies easy bleeding and Denies easy bruising Allergic/Immunologic: Allergic/Immunologic: Denies lip swelling, Denies throat swelling and Denies tongue swelling PMFSH Past Medical History Medical History Anxiety Hypertension Mood disorder Panic disorder Surgical History Surgical History Hx of appendectomy Social History Social History Smoking status: Current every day smoker Tobacco type: e-cigarettes/vaping Alcohol intake: never Substance use: never Substance use type: does not use Exam Const: General: cooperative, healthy appearing, comfortable, no acute distress, well developed, alert
[2021-10-12] MEDS: LORazepam (*CRX) 1 MG TABLET 2 MG PO (06:07)
[2021-10-12 06:13] VITALS: BP 140/77; PULSE 72; RESP 16; O2SAT 98
== END 2021-10-12 06:15 | disposition home or self-care (01) ==
PROVIDERS: Emergency Provider Emergency Medicine; PCP Student in an Organized Health Care Education/Training Program
DX: F41.0 Panic disorder [episodic paroxysmal anxiety] (principal); I10 Essential (primary) hypertension; F39 Unspecified mood [affective] disorder; F17.290 Nicotine dependence, other tobacco product, uncomplicated
CPT/HCPCS: 99283; A9270

== ENCOUNTER 2021-10-25 20:56 | Emergency (ER) | payer MEDICARE, MEDICAID, SELFPAY | END 2021-10-26 02:57 | disposition left against medical advice (07) | LOC: ANHED 21:09 | PROVIDERS: PCP Student in an Organized Health Care Education/Training Program | DX: Z53.21 Procedure and treatment not carried out due to patient leaving prior to being seen by health care provider (principal) | CPT/HCPCS: 99199 ==

== ENCOUNTER 2021-10-28 19:11 | Emergency (ER) | payer MEDICARE, MEDICAID, SELFPAY ==
[2021-10-28 19:12] VITALS: BP 146/80; PULSE 81; RESP 18; TEMP 36.3; O2SAT 98
--- NOTE | 2021-10-28 19:49 | ED.ANXIETY ---
HPI - Anxiety General Chief Complaint: Anxiety Stated Complaint: panic attack Time Seen by Provider: 10/28/21 19:20 History of Present Illness HPI narrative: 51-year-old male presents the emergency room for evaluation of his chronic anxiety and associated shortness of breath. Patient states that he has chronic anxiety, and takes 2 mg of clonazepam 3 times a day. Patient states he regularly gets short of breath when he has panic attacks. Today's presentation is similar to previous ER visits. He reports difficulty sleeping, difficulty concentrating. Accompanied by his mother. he has been on clonazepam and citalopram for many years for his anxiety, and his psychiatrist recently increased his dose of clonazepam from 1 to 2 mg. Patient states that he has been to the emergency room multiple times in the past 3 weeks for similar symptoms. Patient currently is asking for more Ativan and refusing all work-up. Patient denies chest pain. Denies fever. Denies homicidal or suicidal ideation Related Data Home Medications Medication Instructions Recorded Confirmed citalopram 40 mg tablet 40 mg PO DAILY 06/21/20 08/02/21 clonazepam 1 mg tablet 1 mg PO TID 06/21/20 08/02/21 metoprolol succinate 100 mg 100 mg PO DAILY 06/21/20 08/02/21 tablet,extended release 24 hr olanzapine 10 mg tablet 10 mg PO DAILY 06/21/20 08/02/21 Allergies Allergy/AdvReac Type Severity Reaction Status Date / Time No Known Allergies Allergy Unknown Verified 06/20/20 09:13 No Known Allergies Allergy Uncoded 06/20/20 09:13 Review of Systems Review of Systems: CONSTITUTIONAL: Denies fever, chills, or sweats. EYES: Denies visual changes, redness, or discharge. ENT: Denies rhinorrhea, congestion, sore throat, or otalgia. CARDIOVASCULAR: Denies chest pain, palpitations, or edema. RESPIRATORY: Reports dyspnea. GASTROINTESTINAL: Denies abdominal pain, nausea, vomiting, or diarrhea. GENITOURINARY: Denies dysuria or hematuria. SKIN: Denies rash or itching. MUSCULOSKELETAL: Denies back pain, joint pain, or myalgia. NEUROLOGIC: Denies headache, numbness, dizziness, or weakness. PSYCHIATRIC: Reports anxiety. [facility] Past Medical History Medical History Anxiety Hypertension Mood disorder Panic disorder Surgical History Surgical History Hx of appendectomy Social History Social History Smoking status: Current every day smoker Tobacco type: e-cigarettes/vaping Alcohol intake: never Substance use: never Substance use type: does not use Exam Narrative: GENERAL: Well-appearing, well-nourished, and in no acute distress. HEAD: Normocephalic, atraumatic. EYES: PERRLA and EOMI. CHEST: Clear to auscultation. No respiratory distress. No wheezes rales or rhonchi HEART: Regular rate and rhythm. No murmur heard. Normal peripheral pulses. ABDOMEN: Soft, nontender, nondistended, normal active bowel sounds. EXTREMITIES: Normal range of motion. No edema. SKIN: Warm, dry, no rash. NEURO: No focal deficits. Alert and oriented x3. PSYCH: Anxious. Course Course Emergency Course: Patient is refusing chest x-ray, labs, EKG, stating these were all recently evaluated and were found to be within limits patient states that he just wanted a shot of Ativan which is helped in the past. Explained to patient that he is now taking double the amount of clonazepam, and I was not comfortable giving him additional benzodiazepines. Recommended giving patient either buspar or hydroxyzine. Patient was adamant in not taking any more hydroxyzine, but was willing to try BuSpar. Had a lengthy discussion with patient about discussing his medication regimen with his psychiatry. Vital Signs Vital signs: Vital Signs Temperature 36.3 C L 10/28/21 19:12 Pulse Rate 81 10/28/21 19:12 Respiratory Rate 18 10/28/21 1
== END 2021-10-28 20:10 | disposition home or self-care (01) ==
PROVIDERS: Emergency Provider Nurse Practitioner Family; PCP Student in an Organized Health Care Education/Training Program
DX: F41.9 Anxiety disorder, unspecified (principal); I10 Essential (primary) hypertension; F39 Unspecified mood [affective] disorder; F17.290 Nicotine dependence, other tobacco product, uncomplicated
CPT/HCPCS: 99283

== ENCOUNTER 2021-10-29 01:51 | Emergency (ER) | payer MEDICARE, MEDICAID, SELFPAY ==
--- NOTE | ~2021-10-29 | XR_ITS ---
XR chest 1V portable 10/29/2021 02:34 Indication: Shortness of breath Procedure: AP portable chest Comparison: Comparison to multiple prior studies sequentially, with oldest reviewed study dated 08/02. Findings: Heart size normal. Left basilar atelectasis. No focal pneumonia, edema, pleural effusion or pneumothorax. Impression: 1: Left basilar atelectasis. Reviewed, dictated and finalized at location A. Impression: 1: Left basilar atelectasis.
[2021-10-29 01:53] VITALS: BP 149/88; PULSE 93; RESP 20; TEMP 36.3; O2SAT 99
--- NOTE | 2021-10-29 02:09 | ECG_ITS ---
Measurements Intervals [place] Rate: 82 P: 53 [place]: 159 QRS: 31 QRSD: 84 T: 10 QT: 363 QTc: 425 Interpretive Statements SINUS RHYTHM NONSPECIFIC T-WAVE ABNORMALITY ABNORMAL ECG COMPARED TO ECG 10/12/2021 02:19:04 NO SIGNIFICANT CHANGES Electronically Signed On 10-29-2021 11:06:24 CDT by Lamonte Giraldo M.D.
--- NOTE | 2021-10-29 02:10 | ED.ANXIETY ---
HPI - Anxiety General Chief Complaint: Anxiety Stated Complaint: Anxious Time Seen by Provider: 10/29/21 02:09 History of Present Illness HPI narrative: 51-year-old male presents to the emergency room for evaluation of anxiety. Patient also states that he is having difficulty catching his breath. States he has been short of breath for several months and is worsened when his anxiety. Patient states that he took more clonazepam since his most recent ER visit and that did not help with his anxiety or his shortness of breath. Patient is now requesting a breathing treatment believing that that will help. Patient denies any chest pain, cough, fever. Patient states that he has been no exposure to COVID. Related Data Home Medications Medication Instructions Recorded Confirmed citalopram 40 mg tablet 40 mg PO DAILY 06/21/20 08/02/21 clonazepam 1 mg tablet 1 mg PO TID 06/21/20 08/02/21 metoprolol succinate 100 mg 100 mg PO DAILY 06/21/20 08/02/21 tablet,extended release 24 hr olanzapine 10 mg tablet 10 mg PO DAILY 06/21/20 08/02/21 Allergies Allergy/AdvReac Type Severity Reaction Status Date / Time No Known Allergies Allergy Unknown Verified 10/29/21 02:14 Review of Systems Review of Systems: CONSTITUTIONAL: Denies fever, chills, or sweats. EYES: Denies visual changes, redness, or discharge. ENT: Denies rhinorrhea, congestion, sore throat, or otalgia. CARDIOVASCULAR: Denies chest pain, palpitations, or edema. RESPIRATORY: Reports dyspnea GASTROINTESTINAL: Denies abdominal pain, nausea, vomiting, or diarrhea. GENITOURINARY: Denies dysuria or hematuria. SKIN: Denies rash or itching. MUSCULOSKELETAL: Denies back pain, joint pain, or myalgia. NEUROLOGIC: Denies headache, numbness, dizziness, or weakness. PSYCHIATRIC: Reports anxiety PMFSH Past Medical History Medical History Anxiety Hypertension Mood disorder Panic disorder Surgical History Surgical History Hx of appendectomy Social History Social History Smoking status: Current every day smoker Tobacco type: e-cigarettes/vaping Alcohol intake: never Substance use: never Substance use type: does not use Exam Narrative: GENERAL: Well-appearing, well-nourished, and in no acute distress. HEAD: Normocephalic, atraumatic. EYES: PERRLA and EOMI. CHEST: Clear to auscultation. No respiratory distress. No wheezes rales or rhonchi HEART: Regular rate and rhythm. No murmur heard. Normal peripheral pulses. EXTREMITIES: Normal range of motion. No edema. SKIN: Warm, dry, no rash. NEURO: No focal deficits. Alert and oriented x3. PSYCH: Anxious Course Course Emergency Course: Patient was requesting a breathing treatment on arrival. Patient appears to be in no respiratory distress. Pulmonary exam was normal. No wheezing was auscultated. Discussed with patient that if I gave him a breathing treatment, the albuterol would make him more anxious. Patient then declined a breathing treatment. Discussed with patient again, that no more benzodiazepines are going to be prescribed or given to him during his ER visit. Patient stated understanding. Vital Signs Vital signs: Vital Signs Temperature 36.3 C L 10/29/21 01:53 Pulse Rate 93 10/29/21 01:53 Respiratory Rate 20 10/29/21 01:53 Blood Pressure 149/88 H 10/29/21 01:53 Pulse Oximetry 99 10/29/21 01:53 Oxygen Delivery Room Air 10/29/21 01:53 Temperature 36.3 C L 10/29/21 01:53 Pulse Rate 93 10/29/21 01:53 Respiratory Rate 20 10/29/21 01:53 Blood Pressure 149/88 H 10/29/21 01:53 Pulse Oximetry 99 10/29/21 01:53 Oxygen Delivery Room Air 10/29/21 01:53 MDM - Anxiety Imaging Data My impression: No acute cardio or pulmonary disease ECG Data EKG #1: ECG completion date: 10/29/21 ECG comp
--- NOTE | 2021-10-29 02:14 | PC.NURSE ---
Pt here for 2nd visit in last 8 hours. He reports he needs help with his breathing, same complaint as earlier. No s/s of distress. 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 will continue to monitor.
[2021-10-29 02:15] VITALS: RESP 18; O2SAT 99
[2021-10-29 02:45] VITALS: BP 147/88; PULSE 93; RESP 20; TEMP 36.3; O2SAT 100
== END 2021-10-29 02:49 | disposition home or self-care (01) ==
PROVIDERS: Emergency Provider Nurse Practitioner Family; PCP Student in an Organized Health Care Education/Training Program
DX: F41.0 Panic disorder [episodic paroxysmal anxiety] (principal); F39 Unspecified mood [affective] disorder; I10 Essential (primary) hypertension; R94.31 Abnormal electrocardiogram [ECG] [EKG]
CPT/HCPCS: 71045; 93005; 99283

== ENCOUNTER 2022-04-06 02:06 | Emergency (ER) | payer MEDICARE, MEDICAID, SELFPAY ==
--- NOTE | ~2022-04-06 | CT_ITS ---
EXAMINATION: CT abdomen pelvis w con DATE: 04/06/2022 07:34 INDICATION: Right upper quadrant abdominal pain radiating to the back. TECHNIQUE: Computed tomography (CT) of the abdomen and pelvis was performed with 100 mL Omnipaque 350 intravenous contrast. Automated exposure control and iterative reconstruction technique were employe d. The dose-length product was 1508.69 mGy-cm. COMPARISON: CT abdomen and pelvis 05/21/2015 FINDINGS: The visualized portions of the lung bases demonstrate motion artifact and minimal atelectas is. No pleural effusion. The heart size is normal. No pericardial effusion. There is diffuse hepatic steatosis. The gallbladder, spleen, pancreas, adrenal glands, and kidneys are normal. There are two s upraumbilical ventral hernias containing fat. There is prominent fat in the inguinal canals that may be hernias. There are no dilated loops of bowel. The appendix is not visualized. There are no patholo gically enlarged lymph nodes. There is no free intraperitoneal fluid. There is mild thoracolumbar spo ndylosis. IMPRESSION: 1. Two supraumbilical ventral hernias containing fat. 2. Diffuse hepatic steatosis. 3. Prominent fat in the inguinal canals that may be hernias. Reviewed, dictated and finalized at location A. CTIOUS DISEASE TECHNICIAN
--- NOTE | 2022-04-06 05:20 | ED.GENADULT ---
HPI - General Adult History of Present Illness HPI narrative: Patient is a 51-year-old gentleman who presents emerged part with chief complaint of right upper quadrant abdominal pain. Patient reports last 3 weeks has been having pain in the right upper quadrant reports the pain is worsened with rest. Patient reports that he decided to make him into the emergency department since he had some free time. Patient denies fever denies chills denies vomiting or diarrhea. Related Data Home Medications Medication Instructions Recorded Confirmed citalopram 40 mg tablet 40 mg PO DAILY 06/21/20 03/21/22 clonazepam 1 mg tablet 1 mg PO TID 06/21/20 03/21/22 metoprolol succinate 100 mg 100 mg PO DAILY 06/21/20 03/21/22 tablet,extended release 24 hr olanzapine 10 mg tablet 10 mg PO DAILY 06/21/20 03/21/22 Allergies Allergy/AdvReac Type Severity Reaction Status Date / Time No Known Allergies Allergy Unknown Verified 03/21/22 10:32 Review of Systems Review of Systems: A 10 system review of systems was completed on the patient and is negative except for what is stated in the HPI. Nursing and ancillary documentation was reviewed. [facility] Past Medical History Medical History Anxiety Hypertension Mood disorder Panic disorder Surgical History Surgical History Hx of appendectomy Social History Social History Smoking status: Current every day smoker Tobacco type: e-cigarettes/vaping Alcohol intake: never Substance use: never Substance use type: does not use Exam Narrative: GENERAL: Well-appearing, well-nourished, and in no acute distress. HEAD: Normocephalic, atraumatic. EYES: PERRLA and EOMI. ENT: Nares clear, no rhinorrhea or epistaxis. Mucous membranes moist. NECK: Supple. CHEST: Clear to auscultation. No respiratory distress. HEART: Regular rate and rhythm. No murmur heard. Normal peripheral pulses. ABDOMEN: Soft, tenderness to palpation the right upper quadrant, nondistended, normal active bowel sounds. EXTREMITIES: Normal range of motion. No edema. SKIN: Warm, dry, no rash. NEURO: No focal deficits. Alert and oriented x3. PSYCH: Normal mood and affect. Course Course Emergency Course: Patient presented during downtime laboratory studies were within normal limits a CT scan of the abdomen pelvis was again obtained noting patient is wanting to sign out AMA as the results of provided by stat rad Discharge Plan Discharge Clinical Impression: Abdominal pain, acute, right upper quadrant Patient Disposition: Left Against Medical Advice Condition: Stable Instructions: Abdominal Pain (ED) Prescriptions: No Action metoprolol succinate 100 mg tablet extended release 24 hr 100 mg PO DAILY citalopram 40 mg tablet 40 mg PO DAILY olanzapine 10 mg tablet 10 mg PO DAILY clonazepam 1 mg tablet 1 mg PO TID famotidine [Acid Senior Game Designer (famotidine)] 20 mg tablet 20 mg PO .prn Qty: 14 0RF Rx Instructions: 20mg, max one time per day for throat pain clonazepam 1 mg tablet 1 mg PO BID Qty: 4 0RF clonazepam 0.5 mg tablet 0.25 mg PO Q12H Qty: 5 0RF Rx Instructions: administer 30 minutes before bedtime buspirone 10 mg tablet 10 mg PO TID 7 Days Qty: 21 0RF Follow-up/Referrals: Moses,DO Rohit [Primary Care Provider] - Time of Disposition: 05:23
[2022-04-06 06:36] LABS: Appearance Urine Clear (Clear); Color Urine Yellow (Yellow); Glucose Urine UA Negative (Negative); Ketones Urine Negative (Negative); Protein Urine Negative (Negative); Specific Grav Ur 1.015 (1.001-1.035); pH Urine 5.5 (5.0-9.0)
[2022-04-06 06:37] LABS: Add Urine Microscopic? NO; Bilirubin Urine Negative (Negative); Blood Urine Negative (Negative); Leukocyte Esterase Ur Negative LEU/UL (NEGATIVE); Nitrate Urine Negative (Negative); Urobilinogen Urine 0.2 mg/dL (<2.0)
[2022-04-06 06:38] LABS: Alanine Aminotransferase 52 U/L (6-50); Albumin Level 4.5 g/dL (3.5-5.1); Alkaline Phosphatase 87 U/L (38-126); Amylase 106 U/L (30-110); Anion Gap 10 mmol/L (8-16); Aspartate Amino Transferase 42 U/L (17-59); Bilirubin,Total 0.5 mg/dL (0.2-1.3); Blood Urea Nitrogen 13 mg/dL (9-20); Calcium 9.5 mg/dL (8.4-10.2); Carbon Dioxide 26 mmol/L (22-30); Chloride 102 mmol/L (98-107); Estimated Glomerular Filt Rate > 60; Glucose 114 mg/dL (65-110); Potassium 4.1 mmol/L (3.4-5.0); Sodium 138 mmol/L (137-145)
[2022-04-06 06:39] LABS: Basophils Absolute Auto 0.1 K/mm3 (0.0-0.1); Basophils Percent Auto 0.9 % (0.2-1.2); Eosinophils Absolute Auto 0.2 K/mm3 (0-0.3); Eosinophils Percent Auto 2.3 % (0-4.4); Hematocrit 43.1 % (42.0-52.0); Hemoglobin 14.9 g/dL (14.0-18.0); Immature Granulocyte Absolute 0.07 K/mm3 (0.00-0.031); Immature Granulocyte Percent A 0.7 % (0-0.5); Lymphocytes Absolute Auto 3.33 K/mm3 (0.9-3.2); Lymphocytes Percent Auto 35.5 % (18.3-44.2); Mean Corpuscular HGB Conc 34.6 g/dl (32-36); Mean Corpuscular Volume 95.6 fl (80-100); Mean Platelet Volume 10.7 fl (7.4-10.4); Monocytes Absolute Auto 0.8 K/mm3 (0.1-0.6); Neutrophils Absolute Auto 4.9 K/mm3 (1.3-6.7); Neutrophils Percent Auto 52.6 % (45.5-73.1); Platelet Count Result 214 k/mm3 (150-375); Red Blood Count 4.51 M/mm3 (4.6-6.20); Red Cell Distribution Width 12.6 % (11.5-14.5); White Blood Count 9.4 K/mm3 (4.5-10.0)
== END 2022-04-06 05:25 | disposition left against medical advice (07) ==
PROVIDERS: Emergency Provider Emergency Medicine; PCP Student in an Organized Health Care Education/Training Program
DX: R10.11 Right upper quadrant pain (principal); I10 Essential (primary) hypertension; F17.209 Nicotine dependence, unspecified, with unspecified nicotine-induced disorders
CPT/HCPCS: 36415; 74177; 80053; 81003; 82150; 85025; 99284; Q9967

== ENCOUNTER 2022-04-14 08:12 | Emergency (ER) | payer MEDICARE, MEDICAID, SELFPAY ==
--- NOTE | ~2022-04-14 | XR_ITS ---
XR chest 2V DATE: 04/14/2022 08:46 INDICATION: Chest pain and shortness of breath since last evening TECHNIQUE: AP and lateral views COMPARISON: 10/29/2021 portable AP chest FINDINGS: Normal heart size. No hilar or mediastinal enlargement. No pulmonary infiltrate or consolid ation, pleural effusion or pulmonary vascular congestion or pneumothorax. IMPRESSION: No active cardiopulmonary disease Reviewed, dictated and finalized at location A. KISS SETTER
--- NOTE | 2022-04-14 08:14 | ECG_ITS ---
Measurements Intervals [place] Rate: 120 P: 67 ND: 155 QRS: 57 QRSD: 78 T: 19 QT: 331 QTc: 468 Interpretive Statements SINUS TACHYCARDIA DELAYED PRECORDIAL R/S TRANSITION BORDERLINE ST-T WAVE ABNORMALITY- INFERIOR LEADS BASELINE ARTIFACT- I, II, III, AVR, AVL, AVF ABNORMAL ECG COMPARED TO ECG 10/29/2021 02:17:08 SINUS TACHYCARDIA NOW PRESENT Electronically Signed On 04-14-2022 9:50:20 DOCTOR OF NURSE ANESTHESIA by Thaddeus Damian D.O.
[2022-04-14 08:15] VITALS: BP 195/113; PULSE 122; RESP 28; TEMP 36.4; O2SAT 97
[2022-04-14 09:00] VITALS: BP 172/109; PULSE 108; RESP 16; O2SAT 96
[2022-04-14] MEDS: ASPIRIN 81 MG CHEWABLE TABLET 324 MG PO (09:04)
[2022-04-14] MEDS: LORazepam INJ (*CRX) 2 MG/ML VIAL 0.5 MG IV PUSH (09:04)
[2022-04-14 09:05] LABS: Basophils Percent Auto 0.4 % (0.2-1.2); Eosinophils Percent Auto 0.1 % (0-4.4); Hematocrit 48.3 % (42.0-52.0); Hemoglobin 16.6 g/dL (14.0-18.0); Immature Granulocyte Absolute 0.04 K/mm3 (0.00-0.031); Immature Granulocyte Percent A 0.4 % (0-0.5); Lymphocytes Absolute Auto 1.73 K/mm3 (0.9-3.2); Mean Corpuscular HGB Conc 34.4 g/dl (32-36); Mean Corpuscular Hemoglobin 33.3 pg (26-34); Mean Platelet Volume 11.2 fl (7.4-10.4); Monocytes Absolute Auto 0.6 K/mm3 (0.1-0.6); Monocytes Percent Auto 5.8 % (2.6-8.5); Neutrophils Absolute Auto 7.2 K/mm3 (1.3-6.7); Neutrophils Percent Auto 75.3 % (45.5-73.1); Platelet Count Result 214 k/mm3 (150-375); Red Blood Count 4.98 M/mm3 (4.6-6.20); Red Cell Distribution Width 12.8 % (11.5-14.5); White Blood Count 9.6 K/mm3 (4.5-10.0)
[2022-04-14 09:15] LABS: Albumin Level 5.1 g/dL (3.5-5.1); Alkaline Phosphatase 96 U/L (38-126); Anion Gap 14 mmol/L (8-16); Aspartate Amino Transferase 48 U/L (17-59); Bilirubin,Total 0.5 mg/dL (0.2-1.3); Blood Urea Nitrogen 11 mg/dL (9-20); Calcium 9.5 mg/dL (8.4-10.2); Carbon Dioxide 26 mmol/L (22-30); Chloride 100 mmol/L (98-107); Estimated CRCL calculation 133 ml/min; Estimated Glomerular Filt Rate > 60; Glucose 156 mg/dL (65-110); Lipase 382 U/L (23-300); Potassium 3.6 mmol/L (3.4-5.0); Sodium 140 mmol/L (137-145)
[2022-04-14 09:17] LABS: INR 1.1; Prothrombin Time 13.5 Seconds (11.1-14.7)
[2022-04-14 09:18] LABS: Partial Thromboplastin Time 29.4 SECONDS (22.3-36.8)
[2022-04-14 09:26] LABS: Troponin I < 0.012 ng/mL (0.000-0.034)
[2022-04-14 09:32] LABS: Alanine Aminotransferase 52 U/L (6-50)
[2022-04-14 10:00] VITALS: BP 182/108; PULSE 100; RESP 16; O2SAT 96
[2022-04-14 10:35] LABS: Influenza A QL RT-PCR Negative (Negative); Influenza B QL RT-PCR Negative (Negative); SARS-CoV-2 RNA PCR Negative
--- NOTE | 2022-04-14 10:40 | ED.CHESTPAIN ---
HPI - Chest Pain General Chief Complaint: Chest Pain Stated Complaint: CP Time Seen by Provider: 04/14/22 08:16 History of Present Illness HPI narrative: Patient is a 51-year-old male who presents ER with chest pain. Began at 2 AM. Pressure. Associated with sweats and anxiousness. Patient does have significant anxiety disorder. He takes alprazolam 2 mg 3 times a day. He has run out of his medication. No nausea or vomiting. No diarrhea. No fevers but he is feeling hot and chilled. No known sick contacts. Patient has no history of heart disease. No alleviating factors at this time. Patient reports he is able to excelsior picker his anxiety medication at the pharmacy today. Related Data Home Medications Medication Instructions Recorded Confirmed citalopram 40 mg tablet 40 mg PO DAILY 06/21/20 03/21/22 clonazepam 1 mg tablet 1 mg PO TID 06/21/20 03/21/22 metoprolol succinate 100 mg 100 mg PO DAILY 06/21/20 03/21/22 tablet,extended release 24 hr olanzapine 10 mg tablet 10 mg PO DAILY 06/21/20 03/21/22 Allergies Allergy/AdvReac Type Severity Reaction Status Date / Time No Known Allergies Allergy Unknown Verified 03/21/22 10:32 Review of Systems Review of Systems: All systems reviewed & are unremarkable except as noted in HPI and below Constitutional: Constitutional: Reports chills, Denies fatigue and Denies fever(s) ENT: Denies nasal congestion and Denies sore throat Cardiovascular: Cardiovascular: Reports chest pain, Reports rapid heart rate and Denies radiating jaw, neck or arm pain Respiratory: Respiratory: Denies cough, Reports dyspnea and Denies wheezing Gastrointestinal: Gastrointestinal: Denies abdominal pain, Denies diarrhea, Denies nausea and Denies vomiting Neurologic: Denies syncope, Denies focal weakness and Denies numbness Psychiatric: Psychiatric: Reports anxiety and Denies depression PMF Past Medical History Medical History Anxiety Hypertension Mood disorder Panic disorder Surgical History Surgical History Hx of appendectomy Social History Social History Smoking status: Current every day smoker Tobacco type: e-cigarettes/vaping Alcohol intake: never Substance use: never Substance use type: does not use Exam Narrative: GENERAL: Well-appearing, obese, and in no acute distress. HEAD: Normocephalic, atraumatic. EYES: PERRL and EOMI. ENT: Mucous membranes moist. CHEST: Clear to auscultation. No respiratory distress. HEART: Tachycardic and regular. Normal peripheral pulses. ABDOMEN: Soft, nontender, nondistended. EXTREMITIES: Normal range of motion. No edema. SKIN: Warm, dry, no rash. NEURO: Alert and oriented x3. PSYCH: Anxious mood and affect. Course Course Emergency Course: Patient resting comfortably without chest pain. Feels improved with Ativan. Suspect component of withdrawal and anxiety that led him here today. Vital Signs Vital signs: Vital Signs Temperature 97.5 F L 04/14/22 08:15 Pulse Rate 122 H 04/14/22 08:15 Respiratory Rate 28 H 04/14/22 08:15 Blood Pressure 195/113 H 04/14/22 08:15 Pulse Oximetry 97 04/14/22 08:15 Oxygen Delivery Room Air 04/14/22 08:15 Temperature 97.5 F L 04/14/22 08:15 Pulse Rate 104 H 04/14/22 10:45 Respiratory Rate 21 H 04/14/22 10:45 Blood Pressure 205/110 H 04/14/22 10:45 Pulse Oximetry 96 04/14/22 10:45 Oxygen Delivery Room Air 04/14/22 08:20 MDM - Chest Pain Lab Data Result diagrams: 04/14/22 08:26 04/14/22 08:26 Labs: Lab Results 04/14/22 04/14/22 04/14/22 Range/Units 08:26 08:26 08:26 WBC 9.6 (4.5-10.0) K/mm3 RBC 4.98 (4.6-6.20) M/mm3 Hgb 16.6 (14.0-18.0) g/dL Hct 48.3 (42.0-52.0) % MCV 97.0 (80-100) fl MCH 33.3 (26-34) p
[2022-04-14 10:45] VITALS: BP 205/110; PULSE 104; RESP 21; O2SAT 96
--- NOTE | 2022-04-14 10:55 | PC.NURSE ---
1045 Assumed pt care faawd Talbot RN
[2022-04-14 11:41] LABS: Troponin I < 0.012 ng/mL (0.000-0.034)
[2022-04-14 12:50] VITALS: BP 172/97; PULSE 94; RESP 16; O2SAT 95
== END 2022-04-14 12:55 | disposition home or self-care (01) ==
PROVIDERS: Emergency Provider Emergency Medicine; PCP Student in an Organized Health Care Education/Training Program
DX: F41.0 Panic disorder [episodic paroxysmal anxiety] (principal); Z20.822 Contact with and (suspected) exposure to COVID-19; I10 Essential (primary) hypertension; F39 Unspecified mood [affective] disorder; F17.290 Nicotine dependence, other tobacco product, uncomplicated; R00.0 Tachycardia, unspecified; R94.31 Abnormal electrocardiogram [ECG] [EKG]
CPT/HCPCS: 36415; 71046; 80053; 83690; 84484; 85025; 85610; 85730; 87636; 93005; 96374; 99284; A9270; J2060

== ENCOUNTER 2022-06-24 09:43 | Emergency (ER) | payer MEDICARE, MEDICAID, SELFPAY ==
--- NOTE | 2022-06-24 10:10 | ED.SOB ---
HPI - SOB/Dyspnea General Chief Complaint: Shortness of Breath/Dyspnea Stated Complaint: shortness of breath Time Seen by Provider: 06/24/22 09:58 History of Present Illness HPI Narrative: Patient is a 51-year-old male with a history of anxiety disorder and panic disorder here for evaluation of anxiety over the past day. Patient states that he was prescribed 2 mg of Klonopin 3 times daily over the past several years for panic and anxiety. Patient had concerns over the dose of this medicine and therefore has attempted to wean off of this by himself over the past 2 weeks. States that he started with 1 mg 3 times daily for several days and then 0.5 mg 3 times daily for several days. He stopped taking the medicine entirely 3 days ago, was doing well until today when he had a panic attack. He states his symptoms today are consistent with previous, which included shortness of breath, arm and leg shaking, racing thoughts and sweating. He has an appointment with his psychiatrist on . No suicidal or homicidal ideation, seizures, audio or visual hallucinations. Related Data Home Medications Medication Instructions Recorded Confirmed citalopram 40 mg tablet 40 mg PO DAILY 06/21/20 03/21/22 clonazepam 1 mg tablet 1 mg PO TID 06/21/20 03/21/22 metoprolol succinate 100 mg 100 mg PO DAILY 06/21/20 03/21/22 tablet,extended release 24 hr olanzapine 10 mg tablet 10 mg PO DAILY 06/21/20 03/21/22 Allergies Allergy/AdvReac Type Severity Reaction Status Date / Time No Known Allergies Allergy Unknown Verified 03/21/22 10:32 Review of Systems Review of Systems: Gen.: Denies fevers or chills Eyes: Denies eye pain or visual change ENT: Denies congestion Respiratory: Denies shortness of breath or cough CV: Denies chest pain or palpitations GI: Denies abdominal pain nausea, emesis or diarrhea denies burning, urgency, frequency or hematuria Musculoskeletal: Denies back pain or muscle pain Neuro: Denies numbness, tingling, weakness or focal weakness Psych: Reports anxiety Skin: Denies rash Except as documented, all other systems reviewed and negative PMFSH Past Medical History Medical History Anxiety Hypertension Mood disorder Panic disorder Surgical History Surgical History Hx of appendectomy Social History Social History Smoking status: Current every day smoker Tobacco type: e-cigarettes/vaping Alcohol intake: never Substance use: never Substance use type: does not use Exam Narrative: APPEARANCE: Anxious appearing, trembling speech Head: Normocephalic and atraumatic. EYES: PERRLA/EOMI, conjunctivae clear NOSE: No nasal drainage EARS: External ear normal in appearance THROAT: Oropharynx is clear. Mucous membranes are moist. NECK: Supple. No adenopathy, no masses. RESPIRATORY: Airway patent, respirations nonlabored. Clear to auscultation bilaterally, no rales, rhonchi, wheezing. CARDIOVASCULAR: Regular rate and rhythm without murmurs, rubs, or gallops. ABDOMINAL: Normoactive bowel sounds. Soft, nontender, nondistended. No rebound tenderness or guarding. MUSCULOSKELETAL: Extremities are warm and well-perfused. Moves all extremities well. No edema. NEURO: Normal speech. No focal neurologic deficits. SKIN: Skin is warm and dry. No rashes. PSYCHIATRIC: Anxious mood MDM - SOB/Dyspnea MDM Narrative Medical decision making narrative: 51-year-old male with a history of anxiety and panic disorder previously managed on 2 mg of clonazepam 3 times daily, here for evaluation of a panic attack after he weaned himself off of his benzodiazepine completely. Patient arrives anxious appearing but nontoxic, states that his symptoms today are identical to previous episodes of panic attacks. Shared decision making was used and agreed no medical
[2022-06-24] MEDS: clonazePAM (*CRX) 0.5 MG TABLET PO (10:17)
--- NOTE | 2022-06-24 10:18 | PC.NURSE ---
Pill would not scan. Packaging sent to pharmacy.
[2022-06-24 11:06] VITALS: BP 176/99; PULSE 66; RESP 20; TEMP 36.5; O2SAT 96
== END 2022-06-24 11:14 | disposition home or self-care (01) ==
PROVIDERS: Emergency Provider Physician Assistant; PCP Student in an Organized Health Care Education/Training Program
DX: F41.0 Panic disorder [episodic paroxysmal anxiety] (principal); I10 Essential (primary) hypertension; F39 Unspecified mood [affective] disorder; F17.290 Nicotine dependence, other tobacco product, uncomplicated; T42.4X6A Underdosing of benzodiazepines, initial encounter; Z91.128 Patient's intentional underdosing of medication regimen for other reason
CPT/HCPCS: 99283; A9270

== ENCOUNTER 2022-06-26 10:15 | Inpatient (IN) | payer MEDICARE, MEDICAID, SELFPAY ==
[2022-06-26] VITALS (25 sets, daily range): BP systolic 151–200; BP diastolic 83–110; PULSE 69–115; RESP 14–22; TEMP 36.2–36.8; O2SAT 95–99
--- NOTE | ~2022-06-26 | XR_ITS ---
Clinical Indication: Shortness of breath AP and lateral views of the chest: Comparison: 04/14/2022 Findings: Linear bibasilar scarring or atelectasis noted. The lungs are otherwise clear, without evid ence of focal consolidation or pleural effusion. Cardiomediastinal silhouette is within normal limit s. Bones and soft tissues are unremarkable. Impression: Linear bibasilar scarring or atelectasis, otherwise clear lungs. Reviewed, dictated and finalized at location M. M CONDITIONING OPERATOR Impression: Linear bibasilar scarring or atelectasis, otherwise clear lungs.
--- NOTE | ~2022-06-26 | CT_ITS ---
EXAMINATION: CT brain wo con INDICATION: Confusion COMPARISON: 12/31/2013 TECHNIQUE: Standard unenhanced head CT. The dose-length product (DLP) was 605.33 mGy-cm. The mA was a djusted according to patient size. Iterative reconstruction technique was employed. FINDINGS: There is no intracranial hemorrhage, acute infarction, or abnormal mass lesion. The ventric les are normal. There is no abnormal mass effect or midline shift. The lopez-white matter differentiat ion is normal. The basal cisterns are patent. The orbits are normal. The paranasal sinuses, mastoids and calvarium are normal. IMPRESSION: 1. No acute intracranial abnormality. Reviewed, dictated and finalized at location L. R
--- NOTE | 2022-06-26 10:26 | ECG_ITS ---
Measurements Intervals [place] Rate: 106 P: 59 [place]: 159 QRS: 56 QRSD: 79 T: 45 QT: 323 QTc: 430 Interpretive Statements SINUS TACHYCARDIA COMPARED TO ECG 04/14/2022 08:20:08 NO SIGNIFICANT CHANGES Electronically Signed On 06-26-2022 14:53:24 IT SERVICE TECHNICIAN by Rush Courtney M.D.
[2022-06-26 10:45] LABS: Basophils Absolute Auto 0.1 K/mm3 (0.0-0.1); Basophils Percent Auto 0.4 % (0.2-1.2); Eosinophils Percent Auto 0.2 % (0-4.4); Hematocrit 47.3 % (42.0-52.0); Hemoglobin 16.6 g/dL (14.0-18.0); Immature Granulocyte Percent A 0.6 % (0-0.5); Lymphocytes Absolute Auto 3.16 K/mm3 (0.9-3.2); Lymphocytes Percent Auto 19.6 % (18.3-44.2); Mean Corpuscular HGB Conc 35.1 g/dl (32-36); Mean Corpuscular Hemoglobin 33.3 pg (26-34); Mean Platelet Volume 10.9 fl (7.4-10.4); Monocytes Percent Auto 6.3 % (2.6-8.5); Neutrophils Absolute Auto 11.7 K/mm3 (1.3-6.7); Neutrophils Percent Auto 72.9 % (45.5-73.1); Platelet Count Result 279 k/mm3 (150-375); Red Blood Count 4.98 M/mm3 (4.6-6.20); Red Cell Distribution Width 12.7 % (11.5-14.5); White Blood Count 16.1 K/mm3 (4.5-10.0)
[2022-06-26 10:57] LABS: Alanine Aminotransferase 71 U/L (6-50); Albumin Level 4.6 g/dL (3.5-5.1); Alkaline Phosphatase 104 U/L (38-126); Anion Gap 9 mmol/L (8-16); Aspartate Amino Transferase 62 U/L (17-59); Bilirubin,Total 0.6 mg/dL (0.2-1.3); Blood Urea Nitrogen 12 mg/dL (9-20); Calcium 9.4 mg/dL (8.4-10.2); Carbon Dioxide 24 mmol/L (22-30); Chloride 107 mmol/L (98-107); Creatine Kinase 528 U/L (55-170); Estimated CRCL calculation 119 ml/min; Estimated Glomerular Filt Rate > 60; Glucose 132 mg/dL (65-110); Lipase 294 U/L (23-300); Potassium 3.9 mmol/L (3.4-5.0); Sodium 140 mmol/L (137-145)
[2022-06-26 10:59] LABS: Ethanol < 10 mg/dL (<10)
[2022-06-26] MEDS: SODIUM CHLORIDE 0.9% IV 1,000 ML 999 ML IV CONT (10:59)
--- NOTE | 2022-06-26 11:07 | ED.ANXIETY ---
HPI - Anxiety General Chief Complaint: Shortness of Breath/Dyspnea <ANURAG Costa Last Filed: 06/26/22 12:58> Stated Complaint: not eating, heart pounding <ANURAG Costa Last Filed: 06/26/22 12:58> Time Seen by Provider: 06/26/22 10:25 <ANURAG Costa Last Filed: 06/26/22 12:58> Source: patient and family <ANURAG Costa Last Filed: 06/26/22 12:58> Mode of arrival: ambulatory <ANURAG Costa Last Filed: 06/26/22 12:58> Limitations: no limitations <ANURAG Costa Last Filed: 06/26/22 12:58> History of Present Illness HPI narrative: This is a 51-year-old male that presents to the emergency department for worsening anxiety. Reports he has been struggling with anxiety and panic for the last several years. He has been on benzodiazepines chronically for this. He was attempting to wean himself off of these recently. His last dose was yesterday morning. Reports he has been feeling in a brain fog, feels very anxious and tremulous. He has not been taking his medications properly. He is not wanting to eat and has been having diarrhea. He does follow with a psychiatrist. Reports feeling short of breath. He has no thoughts of harming himself or anyone else. Denies chest pain, abdominal pain, vomiting, or lower extremity edema. <Camilla Bah PA-C - Last Filed: 06/26/22 12:58> Related Data Home Medications: Home Medications Medication Instructions Recorded Confirmed citalopram 40 mg tablet 40 mg PO DAILY 06/21/20 03/21/22 clonazepam 1 mg tablet 1 mg PO TID 06/21/20 03/21/22 metoprolol succinate 100 mg 100 mg PO DAILY 06/21/20 03/21/22 tablet,extended release 24 hr olanzapine 10 mg tablet 10 mg PO DAILY 06/21/20 03/21/22 <ANURAG Costa Last Filed: 06/26/22 12:58> Allergies/Adverse Reactions: Allergies Allergy/AdvReac Type Severity Reaction Status Date / Time No Known Allergies Allergy Unknown Verified 06/24/22 11:10 <Camilla Bah PA-C - Last Filed: 06/26/22 12:58> Review of Systems Review of Systems: CONSTITUTIONAL: Denies fever EYES: Denies visual changes CARDIOVASCULAR: Denies chest pain, or edema. RESPIRATORY: Reports dyspnea. Denies cough GASTROINTESTINAL: Reports diarrhea. Denies abdominal pain, nausea, vomiting MUSCULOSKELETAL: Reports myalgia. NEUROLOGIC: Denies numbness, or weakness. PSYCHIATRIC: Reports anxiety <Camilla Bah PA-C - Last Filed: 06/26/22 12:58> All systems reviewed & are unremarkable except as noted in HPI and below <Camilla Bah PA-C - Last Filed: 06/26/22 12:58> PMFSH Past Medical History Medical History: Medical History Anxiety Hypertension Mood disorder Panic disorder <Camilla Bah PA-C - Last Filed: 06/26/22 12:58> Surgical History Surgical History: Surgical History Hx of appendectomy <Camilla Bah PA-C - Last Filed: 06/26/22 12:58> Family History Family History: Family History (Updated 06/26/22 @ 13:37 by Alondra Huitron NP) Father Mental disorder <Camilla Bah PA-C - Last Filed: 06/26/22 12:58> Social History Social History: Social History (Updated 06/26/22 @ 13:38 by Alondra Huitron NP) Social History: lives with mom Smoking status: Current every day smoker Tobacco type: e-cigarettes/vaping Alcohol intake: never Substance use: current Substance use type: marijuana <ANURAG Costa Last Filed: 06/26/22 12:58> Exam Narrative: GENERAL: Well-appearing, well-nourished, anxious HEAD: Normocephalic, atraumatic. EYES: PERRLA and EOMI. ENT: Nares clear, no rhinorrhea or epistaxis. Mucous membranes moist. Oropharynx without tonsillar hypertrophy exudate or other lesions. Bilateral TMs pearly lopez non-bulging NECK: Supple. No adenopathy or masses. CHEST: Clear to aus
[2022-06-26] MEDS: diazePAM INJ (*CRX) 10 MG/2 ML SYRINGE 5 MG IV PUSH (11:17)
[2022-06-26] MEDS: METOPROLOL SUCCINATE EXT REL 100 MG TABCR PO (11:18)
[2022-06-26 11:39] LABS: Influenza A QL RT-PCR Negative (Negative); Influenza B QL RT-PCR Negative (Negative); SARS-CoV-2 RNA PCR Negative
[2022-06-26 12:16] LABS: Appearance Urine Clear (Clear); Bilirubin Urine Negative (Negative); Blood Urine Negative (Negative); Color Urine Yellow (Yellow); Glucose Urine UA Negative (Negative); Ketones Urine Trace mg/dL (Negative); Leukocyte Esterase Ur Negative LEU/UL (Negative); Nitrate Urine Negative (Negative); Protein Urine 2+ mg/dL (Negative); Specific Grav Ur 1.025 (1.001-1.035); Urobilinogen Urine 0.2 mg/dL (<2.0)
[2022-06-26 12:17] LABS: Mucus Urine Rare /lpf; RBC Urine 0-2 /hpf (0-2); Squamous Epithelial Cell Urine Rare /hpf (Few); WBC Urine 0-3 /hpf
[2022-06-26 12:21] LABS: Add Urine Microscopic? YES
[2022-06-26 12:48] LABS: Amphetamine Screen Urine Negative (Negative); Barbiturate Screen Urine Negative (Negative); Benzodiazepines Screen Urine Positive (Negative); Cannabinoid Screen Urine Positive (Negative); Cocaine Screen Urine Negative (Negative); Methadone Screen Urine Negative (Negative); Opiate Screen Urine Negative (Negative); Phencyclidine Screen Urine Negative (Negative)
[2022-06-26] MEDS: ONDANSETRON INJ 4 MG/2 ML VIAL IV PUSH (13:20)
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
[2022-06-26] MEDS: KETOROLAC 15 MG/ML VIAL (*BKC) IV PUSH (14:16)
[2022-06-26] MEDS: clonazePAM (*CRX) 0.5 MG TABLET 2 MG PO ×2 (14:16→22:26)
--- NOTE | 2022-06-26 14:29 | ADMGEN ---
This patient, Boo Cortez, was admitted to IMU Room 203-01. Patient/family oriented to hospital policies and general routines including ID bracelet, bed and alarms, visiting hours, pain management, procedures, bathroom and other care routines, personal items, smoking policy, room service/diet, and visiting hours. Information on how to activate the Rapid Response Team has been discussed. Patient/Family are encouraged to report perceived risks to care and to ask questions if they do not understand what they are told or what they should do.
[2022-06-26] MEDS: FAMOTIDINE 20 MG/2 ML VIAL IV PUSH (20:14)
[2022-06-26] MEDS: OLANZapine 5 MG TABLET 10 MG PO (20:14)
--- NOTE | 2022-06-26 20:20 | WPDCNPSYCH ---
HPI Data of Consult Date/Time: 06/26/22 20:20 Requesting Physician: Karon Durham MD Primary Care Provider: Rohit Lopes, DO Consult Narrative Narrative: On 06/26/2022, a Marine Photographer called me at about 3:30 PM with a consult call for this patient for benzodiazepine withdraw. by Alondra Cortez NP. I asked for the Nurse Practitioner to call report to me. So far, at 06/26/2022 at 8:23 PM, no report has been called to me. If Alondra Cortez NP still feels a Psychiatric consult is still indicated on 06/27/2022, please have her call report to me and to discuss reason for consultation. [facility] Past Medical History Medical History Anxiety Hypertension Mood disorder Panic disorder Surgical History Surgical History Hx of appendectomy Family History Family History Father Mental disorder Social History Social History (Updated 06/26/22 @ 15:46 by Alondra Huitron NP) Social History: He lives with his mom. His father committed suicide at the age of 40. The patient is single and has no children. The patient is disabled. The patient does occasionally use marijuana and he does use E cigarettes and vapes. Code status full code Smoking status: Never smoker Tobacco type: e-cigarettes/vaping Alcohol intake: never Substance use: current Substance use type: marijuana Lack of Transportation: No Lack of Food: Never True Current Housing: I Have Housing Concerned About Future Housing: No Difficulty Paying Gas/Electric Bills: No Difficulty Paying for Meds: No Currently Unemployed: No Education: High School Diploma/GED Difficulty w/ Childcare or Family Care: No Spiritual care concerns: No Meds Home Medications and Allergies Home Medications Medication Instructions Recorded Confirmed Type metoprolol succinate 100 mg 100 mg PO DAILY 06/21/20 06/26/22 History tablet,extended release 24 hr olanzapine 10 mg tablet 10 mg PO HS 06/21/20 06/26/22 History alprazolam 2 mg tablet 2 mg PO TID PRN Anxiety 06/26/22 06/26/22 History citalopram 40 mg tablet 40 mg PO HS 06/26/22 06/26/22 History trazodone 50 mg tablet 100 mg PO HS PRN Insomnia 06/26/22 06/26/22 History Allergies Allergy/AdvReac Type Severity Reaction Status Date / Time No Known Allergies Allergy Unknown Verified 06/24/22 11:10 Vital Signs Vital Signs - 24 hr 06/26/22 10:26 06/26/22 10:34 06/26/22 11:00 Temperature 97.6 F Pulse Rate 115 H 115 H Respiratory Rate 17 Blood Pressure 192/110 H Pulse Oximetry 98 96 Oxygen Delivery Room Air Room Air 06/26/22 11:18 06/26/22 10:48 06/26/22 11:20 Temperature Pulse Rate 97 108 H 97 Respiratory Rate 19 15 Blood Pressure Pulse Oximetry 97 96 Oxygen Delivery 06/26/22 11:34 06/26/22 12:12 06/26/22 12:13 Temperature Pulse Rate 98 93 89 Respiratory Rate 15 14 Blood Pressure 162/106 H Pulse Oximetry 97 97 97 Oxygen Delivery 06/26/22 12:15 06/26/22 12:16 06/26/22 12:30 Temperature Pulse Rate 89 90 101 H Respiratory Rate 19 14 19 Blood Pressure 169/99 H Pulse Oximetry 95 96 97 Oxygen Delivery 06/26/22 12:45 06/26/22 13:00 06/26/22 13:23 Temperature Pulse Rate 90 90 Respiratory Rate 14 16 Blood Pressure Pulse Oximetry 95 97 97 Oxygen Delivery 06/26/22 13:30 06/26/22 13:38 06/26/22 13:52 Temperature 97.8 F Pulse Rate 87 87 Respiratory Rate 18 Blood Pressure 183/102 H 151/100 H Pulse Oximetry 97 96 99 Oxygen Delivery 06/26/22 15:25 06/26/22 16:00 06/26/22 16:00 Temperature 98.2 F Pulse Rate 84 102 H Respiratory Rate 20 Blood Pressure 183/101 H Pulse Oximetry 96 Oxygen Delivery Room Air 06/26/22 16:00 06/26/22 18:00 06/26/22 18:22 Temperature 98.1 F 97.2 F L Pulse Rate 90 92 8
[2022-06-26] MEDS: ACETAMINOPHEN 325 MG TABLET 650 MG PO (22:28)
[2022-06-26] MEDS: traZODone HCL 50 MG TABLET 100 MG PO (22:31)
[2022-06-27] VITALS (14 sets, daily range): BP systolic 121–166; BP diastolic 64–90; PULSE 70–106; RESP 16–20; TEMP 36.6–36.8; O2SAT 97–99
[2022-06-27] MEDS: traZODone HCL 50 MG TABLET 100 MG PO ×2 (04:27→20:05)
[2022-06-27 04:28] LABS: Basophils Absolute Auto 0.1 K/mm3 (0.0-0.1); Basophils Percent Auto 0.5 % (0.2-1.2); Eosinophils Absolute Auto 0.2 K/mm3 (0-0.3); Eosinophils Percent Auto 1.4 % (0-4.4); Hematocrit 43.3 % (42.0-52.0); Hemoglobin 14.6 g/dL (14.0-18.0); Immature Granulocyte Absolute 0.05 K/mm3 (0.00-0.031); Immature Granulocyte Percent A 0.4 % (0-0.5); Lymphocytes Absolute Auto 3.31 K/mm3 (0.9-3.2); Lymphocytes Percent Auto 29.7 % (18.3-44.2); Mean Corpuscular HGB Conc 33.7 g/dl (32-36); Mean Corpuscular Hemoglobin 32.8 pg (26-34); Mean Corpuscular Volume 97.3 fl (80-100); Mean Platelet Volume 10.9 fl (7.4-10.4); Monocytes Absolute Auto 0.8 K/mm3 (0.1-0.6); Monocytes Percent Auto 7.5 % (2.6-8.5); Neutrophils Absolute Auto 6.7 K/mm3 (1.3-6.7); Neutrophils Percent Auto 60.5 % (45.5-73.1); Platelet Count Result 189 k/mm3 (150-375); Red Blood Count 4.45 M/mm3 (4.6-6.20); Red Cell Distribution Width 12.7 % (11.5-14.5); White Blood Count 11.1 K/mm3 (4.5-10.0)
[2022-06-27 04:33] LABS: Alanine Aminotransferase 64 U/L (6-50); Albumin Level 4.2 g/dL (3.5-5.1); Alkaline Phosphatase 80 U/L (38-126); Anion Gap 5 mmol/L (8-16); Aspartate Amino Transferase 52 U/L (17-59); Bilirubin,Total 0.7 mg/dL (0.2-1.3); Blood Urea Nitrogen 13 mg/dL (9-20); Carbon Dioxide 25 mmol/L (22-30); Chloride 107 mmol/L (98-107); Estimated CRCL calculation 133 ml/min; Estimated Glomerular Filt Rate > 60; Glucose 100 mg/dL (65-110); Lactic Acid Reflex 1.4 mmol/L (0.7-2.0); Magnesium 1.8 mg/dL (1.6-2.3); Potassium 3.4 mmol/L (3.4-5.0); Sodium 137 mmol/L (137-145)
[2022-06-27] MEDS: clonazePAM (*CRX) 0.5 MG TABLET 2 MG PO (07:37)
[2022-06-27] MEDS: METOPROLOL SUCCINATE EXT REL 100 MG TABCR PO (10:16)
[2022-06-27] MEDS: FAMOTIDINE 20 MG/2 ML VIAL IV PUSH ×2 (10:17→20:04)
[2022-06-27] MEDS: ENOXAPARIN 40 MG/0.4 ML SYRINGE SUB-Q (10:17)
--- NOTE | 2022-06-27 12:31 | PM.IMPN ---
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, hypnotic or anxiolytic use, unspecified with withdrawal delirium Code(s): F13.939 - Sedative, hypnotic or anxiolytic use, unspecified with withdrawal, unspecified Status: Acute Assessment and Plan: Clonazepam 1mg t.i.d.. Patient has follow-up phone appointment with his psychiatrist, will see how this goes. If patient gets terminated during this of appointment in will ask Dr. lombardi to see inpatient. I did speak with Dr. Lombardi over the phone and recommended this course of action. (2) Hypertension: Qualifiers: Hypertension type: unspecified Qualified Code(s): I10 - Essential (primary) hypertension Code(s): I10 - Essential (primary) hypertension Status: Acute Assessment and Plan: His blood pressure is 183/101 today. He had not taken his medication. He was given his home dose of metoprolol. (3) Panic disorder: Code(s): F41.0 - Panic disorder [episodic paroxysmal anxiety] Status: Acute Assessment and Plan: -restart benzodiazepine but this time p.r.n. (4) LPRD (laryngopharyngeal reflux disease): Code(s): K21.9 - Gastro-esophageal reflux disease without esophagitis Status: Acute Assessment and Plan: Continue with IV Pepcid and Zofran -monitor for any EKG changes especially prolonged QT (5) Mood disorder: Code(s): F39 - Unspecified mood [affective] disorder Status: Acute Assessment and Plan: -continue with Zyprexa and trazodone for sleep The patient had been on Celexa at 1 point I am not sure if he is still on that. (6) Leukocytosis: Code(s): D72.829 - Elevated white blood cell count, unspecified Status: Acute Assessment and Plan: Could be stress related. Urinalysis was negative. Chest x-ray was read as clear. Subjective Date/time seen: 06/27/22 12:31 No new complaints Exam Narrative: GENERAL: Well-appearing, well-nourished, anxious HEAD: Normocephalic, atraumatic. EYES: PERRLA and EOMI. ENT: Nares clear, no rhinorrhea or epistaxis. Mucous membranes moist. Oropharynx without tonsillar hypertrophy exudate or other lesions. Bilateral TMs pearly lopez non-bulging NECK: Supple. No adenopathy or masses. CHEST: Clear to auscultation. No respiratory distress. No wheezes rales or rhonchi HEART: Regular rate and rhythm. No murmur heard. Normal peripheral pulses. ABDOMEN: Soft, nontender, nondistended, normal active bowel sounds. EXTREMITIES: Normal range of motion. No edema. SKIN: Warm, dry, no rash. NEURO: No focal deficits. Alert and oriented x3. Cranial nerves II through XII grossly intact PSYCH: Anxious, tremulous Const: General: cooperative, healthy appearing, comfortable, no acute distress, well developed, awake, Physically active, average body habitus and well nourished Nutritional Appearance: average body habitus and well nourished Orientation/consciousness: oriented to person, oriented to place, oriented to time and patient oriented x3 Limitations: no limitations HENMT: Head: normal to inspection, No palpable skull fracture present, normocephalic and atraumatic Ears: hearing grossly normal bilaterally and external ears normal Face/Nose/Sinus: Normal external nose present and Normal nares present Mouth: Yes Normal oral and palatal mucosa present Eyes: General: appearance normal, both eyes and all related structures Alignment and Position: alignment normal Periorbital: periorbital findings normal Eyelids: eyelids normal Sclera: sclerae normal Pupils: Equal, round and reactive pupils present EOM: EOMs intact bilaterally Neck: Neck: normal visual inspection, full ROM, no lymphadenopathy, trachea midline and supple Chest: Chest palpation & inspection: normal inspection of the chest Resp: Effort & Inspecti
[2022-06-27] MEDS: clonazePAM (*CRX) 0.5 MG TABLET 1 MG PO ×2 (14:38→22:36)
--- NOTE | 2022-06-27 16:39 | PC.NURSE ---
Brenda, pts mother at bedside, reports that pts psychiatrist, Dr. Lee, is unable to do phone appointment while admitted to the hospital for insurance purposes. Spoke with Dr. Kay regarding plan of care. Reports pt can be discharged to attend appointment. Brenda called office back, appointment is no longer available. Pt scheduled to see psychiatrist on Saturday, 07/02.
[2022-06-27] MEDS: CITALOPRAM HYDROBROMIDE 20 MG TABLET 40 MG PO (20:04)
[2022-06-27] MEDS: OLANZapine 5 MG TABLET 10 MG PO (20:04)
[2022-06-28] VITALS (15 sets, daily range): BP systolic 109–169; BP diastolic 56–98; PULSE 55–103; RESP 18–20; TEMP 36.8–36.9; O2SAT 96–100
[2022-06-28] MEDS: clonazePAM (*CRX) 0.5 MG TABLET 1 MG PO ×2 (08:16→15:54)
[2022-06-28] MEDS: FAMOTIDINE 20 MG/2 ML VIAL IV PUSH ×2 (08:17→20:33)
[2022-06-28] MEDS: METOPROLOL SUCCINATE EXT REL 100 MG TABCR PO (08:17)
[2022-06-28] MEDS: ENOXAPARIN 40 MG/0.4 ML SYRINGE SUB-Q (08:17)
[2022-06-28] MEDS: lisinopriL 10 MG TABLET PO (09:41)
--- NOTE | 2022-06-28 11:58 | PM.IMPN ---
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, hypnotic or anxiolytic use, unspecified with withdrawal delirium Code(s): F13.939 - Sedative, hypnotic or anxiolytic use, unspecified with withdrawal, unspecified Status: Acute (2) Hypertension: Qualifiers: Hypertension type: unspecified Qualified Code(s): I10 - Essential (primary) hypertension Code(s): I10 - Essential (primary) hypertension Status: Acute (3) Panic disorder: Code(s): F41.0 - Panic disorder [episodic paroxysmal anxiety] Status: Acute (4) LPRD (laryngopharyngeal reflux disease): Code(s): K21.9 - Gastro-esophageal reflux disease without esophagitis Status: Acute (5) Mood disorder: Code(s): F39 - Unspecified mood [affective] disorder Status: Acute (6) Leukocytosis: Code(s): D72.829 - Elevated white blood cell count, unspecified Status: Acute Subjective Date/time seen: 06/28/22 11:58 Still improved today Exam Const: General: cooperative, healthy appearing, comfortable, no acute distress, well developed, awake, Physically active, average body habitus and well nourished Nutritional Appearance: average body habitus and well nourished Orientation/consciousness: oriented to person, oriented to place, oriented to time and patient oriented x3 Limitations: no limitations HENMT: Head: normal to inspection, No palpable skull fracture present, normocephalic and atraumatic Ears: hearing grossly normal bilaterally and external ears normal Face/Nose/Sinus: Normal external nose present and Normal nares present Mouth: Yes Normal oral and palatal mucosa present Eyes: General: appearance normal, both eyes and all related structures Alignment and Position: alignment normal Periorbital: periorbital findings normal Eyelids: eyelids normal Sclera: sclerae normal Pupils: Equal, round and reactive pupils present EOM: EOMs intact bilaterally Neck: Neck: normal visual inspection, full ROM, no lymphadenopathy, trachea midline and supple Chest: Chest palpation & inspection: normal inspection of the chest Resp: Effort & Inspection: normal respiratory effort Auscultation: clear to auscultation bilaterally Cardio: Palpation: normal PMI Rate: tachycardic Rhythm: regular rhythm Heart sounds: S1 normal heart sound present and S2 normal heart sound present Peripheral pulses: Peripheral pulses 2+ throughout GI: Inspection: normal to inspection Auscultation: normal bowel sounds Rectal Exam: deferred Back/Spine/Pelvis: Cervical Spine: cervical ROM normal Skin: General skin exam: normal color Lesions: no lesions Rashes: no rashes Trauma: no lacerations or abrasions Wounds: no wounds Hair: male pattern alopecia Nails: normal Neuro: General: oriented to person, oriented to place, oriented to time and patient oriented x3 Cranial nerves: Yes Equal, round and reactive pupils present and Yes Normal hearing present Cognition (Neuro): normal cognition Speech: normal speech Motor exam (neuro): 5/5 motor strength present throughout Sensory Exam: normal sensation Extrem: General: normal to inspection Right upper extremity: normal to inspection and shoulder/upper arm Left upper extremity: normal to inspection and shoulder/upper arm Right lower extremity: normal to inspection Left lower extremity: normal to inspection Psych: Appearance: grossly normal Mental Status: mental status grossly normal Speech and movement: Normal speech and movement present Affect: normal affect Attitude: cooperative Thought process: Normal thought process present Insight: Limited insight present (Psych) Judgement: Limited judgement present (Psych) Objective Data Vital Signs Vital Signs: Vital Signs - 24 hr 06/27/22 12:00 06/27/22 12:00 06/27/22 12:00 Temperature
[2022-06-28] MEDS: traZODone HCL 50 MG TABLET 100 MG PO (20:32)
[2022-06-28] MEDS: CITALOPRAM HYDROBROMIDE 20 MG TABLET 40 MG PO (20:33)
[2022-06-28] MEDS: OLANZapine 5 MG TABLET 10 MG PO (20:33)
[2022-06-29] VITALS (14 sets, daily range): BP systolic 103–143; BP diastolic 61–91; PULSE 64–102; RESP 18–24; TEMP 35.8–37.1; O2SAT 96–100
[2022-06-29] MEDS: clonazePAM (*CRX) 0.5 MG TABLET 1 MG PO ×3 (01:17→17:28)
[2022-06-29] MEDS: ENOXAPARIN 40 MG/0.4 ML SYRINGE SUB-Q (09:14)
[2022-06-29] MEDS: METOPROLOL SUCCINATE EXT REL 100 MG TABCR PO (09:15)
[2022-06-29] MEDS: FAMOTIDINE 20 MG/2 ML VIAL IV PUSH ×2 (09:15→20:17)
[2022-06-29] MEDS: lisinopriL 10 MG TABLET PO (09:15)
--- NOTE | 2022-06-29 11:49 | PM.IMPN ---
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, hypnotic or anxiolytic use, unspecified with withdrawal delirium Code(s): F13.939 - Sedative, hypnotic or anxiolytic use, unspecified with withdrawal, unspecified Status: Acute Assessment and Plan: Improved, will be discharged Saturday to get a psychiatry (2) Hypertension: Qualifiers: Hypertension type: unspecified Qualified Code(s): I10 - Essential (primary) hypertension Code(s): I10 - Essential (primary) hypertension Status: Acute (3) Panic disorder: Code(s): F41.0 - Panic disorder [episodic paroxysmal anxiety] Status: Acute (4) LPRD (laryngopharyngeal reflux disease): Code(s): K21.9 - Gastro-esophageal reflux disease without esophagitis Status: Acute (5) Mood disorder: Code(s): F39 - Unspecified mood [affective] disorder Status: Acute (6) Leukocytosis: Code(s): D72.829 - Elevated white blood cell count, unspecified Status: Acute Subjective Date/time seen: 06/29/22 11:49 No new complaints Exam Const: General: cooperative, healthy appearing, comfortable, no acute distress, well developed, awake, Physically active, average body habitus and well nourished Nutritional Appearance: average body habitus and well nourished Orientation/consciousness: oriented to person, oriented to place, oriented to time and patient oriented x3 Limitations: no limitations HENMT: Head: normal to inspection, No palpable skull fracture present, normocephalic and atraumatic Ears: hearing grossly normal bilaterally and external ears normal Face/Nose/Sinus: Normal external nose present and Normal nares present Mouth: Yes Normal oral and palatal mucosa present Eyes: General: appearance normal, both eyes and all related structures Alignment and Position: alignment normal Periorbital: periorbital findings normal Eyelids: eyelids normal Sclera: sclerae normal Pupils: Equal, round and reactive pupils present EOM: EOMs intact bilaterally Neck: Neck: normal visual inspection, full ROM, no lymphadenopathy, trachea midline and supple Chest: Chest palpation & inspection: normal inspection of the chest Resp: Effort & Inspection: normal respiratory effort Auscultation: clear to auscultation bilaterally Cardio: Palpation: normal PMI Rate: tachycardic Rhythm: regular rhythm Heart sounds: S1 normal heart sound present and S2 normal heart sound present Peripheral pulses: Peripheral pulses 2+ throughout GI: Inspection: normal to inspection Auscultation: normal bowel sounds Rectal Exam: deferred Back/Spine/Pelvis: Cervical Spine: cervical ROM normal Skin: General skin exam: normal color Lesions: no lesions Rashes: no rashes Trauma: no lacerations or abrasions Wounds: no wounds Hair: male pattern alopecia Nails: normal Neuro: General: oriented to person, oriented to place, oriented to time and patient oriented x3 Cranial nerves: Yes Equal, round and reactive pupils present and Yes Normal hearing present Cognition (Neuro): normal cognition Speech: normal speech Motor exam (neuro): 5/5 motor strength present throughout Sensory Exam: normal sensation Extrem: General: normal to inspection Right upper extremity: normal to inspection and shoulder/upper arm Left upper extremity: normal to inspection and shoulder/upper arm Right lower extremity: normal to inspection Left lower extremity: normal to inspection Psych: Appearance: grossly normal Mental Status: mental status grossly normal Speech and movement: Normal speech and movement present Affect: normal affect Attitude: cooperative Thought process: Normal thought process present Insight: Limited insight present (Psych) Judgement: Limited judgement present (Psych) Objective Data Vital Signs Vital Signs: V
[2022-06-29] MEDS: OLANZapine 5 MG TABLET 10 MG PO (20:17)
[2022-06-29] MEDS: CITALOPRAM HYDROBROMIDE 20 MG TABLET 40 MG PO (20:17)
[2022-06-29] MEDS: traZODone HCL 50 MG TABLET 100 MG PO (20:17)
[2022-06-30 05:48] VITALS: BP 105/64; PULSE 79; RESP 14; TEMP 36.6; O2SAT 94
[2022-06-30] MEDS: clonazePAM (*CRX) 0.5 MG TABLET 1 MG PO ×3 (06:28→21:27)
[2022-06-30 09:08] VITALS: PULSE 79
[2022-06-30] MEDS: METOPROLOL SUCCINATE EXT REL 100 MG TABCR PO (09:08)
[2022-06-30] MEDS: FAMOTIDINE 20 MG/2 ML VIAL IV PUSH (09:08)
[2022-06-30] MEDS: lisinopriL 10 MG TABLET PO (09:08)
--- NOTE | 2022-06-30 11:36 | P.PNIM_ITS ---
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, hypnotic or anxiolytic use, unspecified with withdrawal delirium Code(s): F13.939 - Sedative, hypnotic or anxiolytic use, unspecified with withdrawal, unspecified Status: Acute Assessment and Plan: Improved, will be discharged Saturday to get a psychiatry (2) Hypertension: Qualifiers: Hypertension type: unspecified Qualified Code(s): I10 - Essential (primary) hypertension Code(s): I10 - Essential (primary) hypertension Status: Acute (3) Panic disorder: Code(s): F41.0 - Panic disorder [episodic paroxysmal anxiety] Status: Acute (4) LPRD (laryngopharyngeal reflux disease): Code(s): K21.9 - Gastro-esophageal reflux disease without esophagitis Status: Acute (5) Mood disorder: Code(s): F39 - Unspecified mood [affective] disorder Status: Acute (6) Leukocytosis: Code(s): D72.829 - Elevated white blood cell count, unspecified Status: Acute Subjective Date/time seen: 06/30/22 11:36 No new complaints Exam Const: General: cooperative, healthy appearing, comfortable, no acute distress, well developed, awake, Physically active, average body habitus and well nourished Nutritional Appearance: average body habitus and well nourished Orientation/consciousness: oriented to person, oriented to place, oriented to time and patient oriented x3 Limitations: no limitations HENMT: Head: normal to inspection, No palpable skull fracture present, normocephalic and atraumatic Ears: hearing grossly normal bilaterally and external ears normal Face/Nose/Sinus: Normal external nose present and Normal nares present Mouth: Yes Normal oral and palatal mucosa present Eyes: General: appearance normal, both eyes and all related structures Alignment and Position: alignment normal Periorbital: periorbital findings normal Eyelids: eyelids normal Sclera: sclerae normal Pupils: Equal, round and reactive pupils present EOM: EOMs intact bilaterally Neck: Neck: normal visual inspection, full ROM, no lymphadenopathy, trachea midline and supple Chest: Chest palpation & inspection: normal inspection of the chest Resp: Effort & Inspection: normal respiratory effort Auscultation: clear to auscultation bilaterally Cardio: Palpation: normal PMI Rate: tachycardic Rhythm: regular rhythm Heart sounds: S1 normal heart sound present and S2 normal heart sound present Peripheral pulses: Peripheral pulses 2+ throughout GI: Inspection: normal to inspection Auscultation: normal bowel sounds Rectal Exam: deferred Back/Spine/Pelvis: Cervical Spine: cervical ROM normal Skin: General skin exam: normal color Lesions: no lesions Rashes: no rashes Trauma: no lacerations or abrasions Wounds: no wounds Hair: male pattern alopecia Nails: normal Neuro: General: oriented to person, oriented to place, oriented to time and patient oriented x3 Cranial nerves: Yes Equal, round and reactive pupils present and Yes Normal hearing present Cognition (Neuro): normal cognition Speech: normal speech Motor exam (neuro): 5/5 motor strength present throughout Sensory Exam: normal sensation Extrem: General: normal to inspection Right upper extremity: normal to inspection and shoulder/upper arm Left upper extremity: normal to inspection and shoulde
[2022-06-30 14:00] VITALS: BP 135/81; PULSE 83; RESP 18; TEMP 36.6; O2SAT 98
[2022-06-30] MEDS: CITALOPRAM HYDROBROMIDE 20 MG TABLET 40 MG PO (21:27)
[2022-06-30] MEDS: OLANZapine 5 MG TABLET 10 MG PO (21:28)
[2022-06-30 21:32] VITALS: BP 122/84; PULSE 88; RESP 14; TEMP 36.4; O2SAT 96
[2022-07-01] MEDS: traZODone HCL 50 MG TABLET 100 MG PO ×2 (04:54→21:55)
[2022-07-01 05:37] VITALS: BP 129/68; PULSE 101; RESP 14; TEMP 36.1; O2SAT 96
[2022-07-01 08:09] VITALS: PULSE 92
[2022-07-01] MEDS: METOPROLOL SUCCINATE EXT REL 100 MG TABCR PO (08:09)
[2022-07-01] MEDS: lisinopriL 10 MG TABLET PO (08:09)
[2022-07-01] MEDS: clonazePAM (*CRX) 0.5 MG TABLET 1 MG PO ×3 (08:09→21:55)
[2022-07-01 14:00] VITALS: BP 107/61; PULSE 83; RESP 16; TEMP 36.1; O2SAT 99
[2022-07-01] MEDS: CITALOPRAM HYDROBROMIDE 20 MG TABLET 40 MG PO (20:35)
[2022-07-01] MEDS: OLANZapine 5 MG TABLET 10 MG PO (20:35)
[2022-07-01 21:55] VITALS: BP 126/77; PULSE 80; RESP 16; TEMP 36.7; O2SAT 99
[2022-07-02 05:41] VITALS: BP 124/70; PULSE 82; RESP 16; TEMP 36.3; O2SAT 96
--- NOTE | 2022-07-02 07:47 | PM.DS ---
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 (2) Hypertension: Qualifiers: Hypertension type: unspecified Qualified Code(s): I10 - Essential (primary) hypertension Code(s): I10 - Essential (primary) hypertension Status: Acute (3) Panic disorder: Code(s): F41.0 - Panic disorder [episodic paroxysmal anxiety] Status: Acute (4) LPRD (laryngopharyngeal reflux disease): Code(s): K21.9 - Gastro-esophageal reflux disease without esophagitis Status: Acute (5) Mood disorder: Code(s): F39 - Unspecified mood [affective] disorder Status: Acute (6) Leukocytosis: Code(s): D72.829 - Elevated white blood cell count, unspecified Status: Acute DS: Summary Hospital Course Hospital Course: Patient is a 51-year-old male who came in because he ran out of his benzodiazepines orally. He was having some anxiety and panic attacks. He was put on clonazepam did okay in the hospital. Patient has an appointment with the psychiatrist today. I did consult Dr. Lombardi who recommended keeping him in the hospital until is psychiatry appointment which will happen today. I have given the patient 1 day supply of his clonazepam will need to get any further prescriptions from his psychiatrist. Patient has assured me he is going to his psychiatry appointment today. Time Spent with Patient Time attestation: Total time spent providing and/or coordinating discharge services: Exam Const: General: cooperative, healthy appearing, comfortable, no acute distress, well developed, awake, Physically active, average body habitus and well nourished Nutritional Appearance: average body habitus and well nourished Orientation/consciousness: oriented to person, oriented to place, oriented to time and patient oriented x3 Limitations: no limitations HENMT: Head: normal to inspection, No palpable skull fracture present, normocephalic and atraumatic Ears: hearing grossly normal bilaterally and external ears normal Face/Nose/Sinus: Normal external nose present and Normal nares present Mouth: Yes Normal oral and palatal mucosa present Eyes: General: appearance normal, both eyes and all related structures Alignment and Position: alignment normal Periorbital: periorbital findings normal Eyelids: eyelids normal Sclera: sclerae normal Pupils: Equal, round and reactive pupils present EOM: EOMs intact bilaterally Neck: Neck: normal visual inspection, full ROM, no lymphadenopathy, trachea midline and supple Chest: Chest palpation & inspection: normal inspection of the chest Resp: Effort & Inspection: normal respiratory effort Auscultation: clear to auscultation bilaterally Cardio: Palpation: normal PMI Rate: tachycardic Rhythm: regular rhythm Heart sounds: S1 normal heart sound present and S2 normal heart sound present Peripheral pulses: Peripheral pulses 2+ throughout GI: Inspection: normal to inspection Auscultation: normal bowel sounds Rectal Exam: deferred Back/Spine/Pelvis: Cervical Spine: cervical ROM normal Skin: General skin exam: normal color Lesions: no lesions Rashes: no rashes Trauma: no lacerations or abrasions Wounds: no wounds Hair: male pattern alopecia Nails: normal Neuro: General: oriented to person, oriented to place, oriented to time and patient oriented x3 Cranial nerves: Yes Equal, round and reactive pupils present and Yes Normal hearing pr
[2022-07-02 08:00] VITALS: PULSE 98
[2022-07-02] MEDS: ENOXAPARIN 40 MG/0.4 ML SYRINGE SUB-Q (08:00)
[2022-07-02] MEDS: clonazePAM (*CRX) 0.5 MG TABLET 1 MG PO (08:00)
[2022-07-02] MEDS: METOPROLOL SUCCINATE EXT REL 100 MG TABCR PO (08:00)
[2022-07-02] MEDS: lisinopriL 10 MG TABLET PO (08:00)
== END 2022-07-02 10:15 | disposition home or self-care (01) | DRG 897 ==
LOC: ANHED 12:52 → ANHIMU 13:17 → ANH3MEDSUR 06-29 18:20
PROVIDERS: Nurse Practitioner; Physician Assistant; Admitting Provider Internal Medicine; Emergency Provider Emergency Medicine; PCP Student in an Organized Health Care Education/Training Program; Visit Provider Chiropractor
DX: F13.931 Sedative, hypnotic or anxiolytic use, unspecified with withdrawal delirium (principal); I10 Essential (primary) hypertension; F41.0 Panic disorder [episodic paroxysmal anxiety]; K21.9 Gastro-esophageal reflux disease without esophagitis; D72.829 Elevated white blood cell count, unspecified; Z20.822 Contact with and (suspected) exposure to COVID-19; F17.290 Nicotine dependence, other tobacco product, uncomplicated; Z79.899 Other long term (current) drug therapy; Z81.8 Family history of other mental and behavioral disorders
CPT/HCPCS: 36415; 70450; 71046; 80053; 80307; 81001; 82550; 83605; 83690; 83735; 84443; 85025; 87636; 93005; 96361; 96372; 96374; 96375; 96376; 99285; A9270; G0378; J1650; J1885; J2405; J3360; J7030

== ENCOUNTER 2022-11-17 13:50 | Emergency (ER) | payer MEDICARE, MEDICAID, SELFPAY ==
[2022-11-17 14:21] VITALS: BP 134/79; PULSE 96; RESP 16; TEMP 36.6; O2SAT 100
--- NOTE | 2022-11-17 15:26 | ED.URI ---
HPI - URI/Sore Throat General Chief Complaint: Upper Respiratory Infection Stated Complaint: sore throat Time Seen by Provider: 11/17/22 14:50 Source: patient and RN notes reviewed Mode of arrival: ambulatory Limitations: no limitations History of Present Illness HPI Narrative: This is a 52 year old male who presents for sore throat. He reports sore throat for 2 years but he states it became inflamed yesterday. He was evaluated at [facility]. He states they were unable to get swab because he could not tolerate procedure. He was prescribed antibiotics. He states he is still having pain although it is better. He denies fever, chills, hoarseness. He was evaluated by ENT 1 year ago. He reports he is having to eat broth due to pain. Related Data Home Medications Medication Instructions Recorded Confirmed metoprolol succinate 100 mg 100 mg PO DAILY 06/21/20 06/26/22 tablet,extended release 24 hr olanzapine 10 mg tablet 10 mg PO HS 06/21/20 06/26/22 citalopram 40 mg tablet 40 mg PO HS 06/26/22 06/26/22 trazodone 50 mg tablet 100 mg PO HS PRN Insomnia 06/26/22 06/26/22 Allergies Allergy/AdvReac Type Severity Reaction Status Date / Time No Known Allergies Allergy Unknown Verified 11/17/22 14:51 [facility] Past Medical History Medical History Anxiety Hypertension Mood disorder Panic disorder Surgical History Surgical History Hx of appendectomy Family History Family History Father Mental disorder Social History Social History (Updated 06/26/22 @ 15:46 by Alondra Huitron NP) Social History: He lives with his mom. His father committed suicide at the age of 40. The patient is single and has no children. The patient is disabled. The patient does occasionally use marijuana and he does use E cigarettes and vapes. Code status full code Smoking status: Never smoker Tobacco type: e-cigarettes/vaping Alcohol intake: never Substance use: current Substance use type: marijuana Lack of Transportation: No Lack of Food: Never True Current Housing: I Have Housing Concerned About Future Housing: No Difficulty Paying Gas/Electric Bills: No Difficulty Paying for Meds: No Currently Unemployed: No Education: High School Diploma/GED Difficulty w/ Childcare or Family Care: No Spiritual care concerns: No Exam Const: General: no acute distress and alert Nutritional Appearance: well nourished Orientation/consciousness: patient oriented x3 HENMT: Head: normal to inspection Ears: external ears normal and TM's normal bilaterally Face and sinus: normal facial exam Mouth: Yes Normal oral and palatal mucosa present and Yes moist mucous membranes Throat: posterior oropharynx normal and uvula midline Eyes: EOM: EOMs intact bilaterally Neck: Neck: normal visual inspection Chest: Chest palpation & inspection: normal inspection of the chest Resp: Effort & Inspection: normal respiratory effort Auscultation: clear to auscultation bilaterally Neuro: General: patient oriented x3, moves all extremities and CN's II-XI intact bilaterally Extrem: General: normal to inspection Psych: Mental Status: mental status grossly normal Affect: normal affect Attitude: cooperative Course Reevaluation(s) Reevaluation #1: Nurse states he declined swabs and he signed AMA Date: 11/17/22 Time: 15:26 Vital Signs Vital signs: Vital Signs Temperature 97.8 F 11/17/22 14:21 Pulse Rate 96 11/17/22 14:21 Respiratory Rate 16 11/17/22 14:21 Blood Pressure 134/79 11/17/22 14:21 Pulse Oximetry 100 11/17/22 14:21 Oxygen Delivery Room Air 11/17/22 14:21 Temperature 97.8 F 11/17/22 14:21 Pulse Rate 96 11/17/22 14:21 Respiratory Rate 16 11/17/22 14:21 Blood Pressure 134/79 11/17/22 14:21 Pulse Oximetry 100 11/17/22 14
== END 2022-11-17 15:26 | disposition left against medical advice (07) ==
LOC: ANHED 14:53
PROVIDERS: Emergency Provider General Practice; PCP Student in an Organized Health Care Education/Training Program
DX: J02.9 Acute pharyngitis, unspecified (principal); I10 Essential (primary) hypertension; F41.0 Panic disorder [episodic paroxysmal anxiety]; F39 Unspecified mood [affective] disorder; F17.290 Nicotine dependence, other tobacco product, uncomplicated
CPT/HCPCS: 99281

== ENCOUNTER 2023-01-13 11:03 | Outpatient (CLI) | payer MEDICARE, MEDICAID, SELFPAY ==
--- NOTE | ~2023-01-13 | CT_ITS ---
CT Scan of the Chest without Contrast: Clinical Indication: COPD, wheezing Technique: Contiguous sections were acquired throughout the chest without intravenous contrast. Dose reduction technique was used on this scan by utilizing automated exposure control and iterative recon struction technique. The dose-length product (DLP) was 771.39 mGy-cm. Findings: There is no evidence of any significant mediastinal, hilar or axillary lymphadenopathy. The mediastin al soft tissues appear normal. There is no evidence of pleural or pericardial effusion. Subcentimeter fissural nodules noted in the right lung. Images through the upper abdomen reveal probable diffuse fatty infiltration of the liver. Impression: Subcentimeter fissural nodules in the right lung. According to Fleischner Society criteria, for a low -risk patient, no further follow-up required. For a high-risk patient, consider 12 month follow-up CT . Probable diffuse fatty infiltration of the liver. Reviewed, dictated and finalized at [facility]. Impression: Subcentimeter fissural nodules in the right lung. According to Fleischner Socie ty criteria, for a low-risk patient, no further follow-up required. For a high- risk patient, consider 12 month follow-up CT. Probable diffuse fatty infiltration of the liver.
== END 2023-01-13 11:04 | disposition home or self-care (01) ==
PROVIDERS: PCP Student in an Organized Health Care Education/Training Program; Visit Provider Student in an Organized Health Care Education/Training Program
DX: R06.2 Wheezing (principal); J44.9 Chronic obstructive pulmonary disease, unspecified
CPT/HCPCS: 71250

== ENCOUNTER 2023-01-25 00:05 | Emergency (ER) | payer MEDICARE, MEDICAID, SELFPAY ==
[2023-01-25 00:08] VITALS: BP 180/88; PULSE 105; RESP 20; TEMP 36.8; O2SAT 98
--- NOTE | 2023-01-25 01:14 | PC.NURSE ---
no answer at triage
== END 2023-01-25 02:16 | disposition left against medical advice (07) ==
PROVIDERS: PCP Student in an Organized Health Care Education/Training Program
DX: M54.50 Low back pain, unspecified (principal)
CPT/HCPCS: 99199

== ENCOUNTER 2023-01-25 02:05 | Emergency (ER) | payer MEDICARE, MEDICAID, SELFPAY ==
[2023-01-25 02:08] VITALS: BP 184/92; PULSE 101; RESP 20; TEMP 36.9; O2SAT 98
== END 2023-01-25 03:14 | disposition left against medical advice (07) ==
PROVIDERS: Emergency Provider Emergency Medicine; PCP Student in an Organized Health Care Education/Training Program
DX: M54.50 Low back pain, unspecified (principal)
CPT/HCPCS: 99199

== ENCOUNTER 2023-10-24 22:02 | Emergency (ER) | payer MEDICARE, MEDICAID, SELFPAY ==
--- NOTE | ~2023-10-24 | CT_ITS ---
Noncontrast CT scan of the thoracic spine CLINICAL HISTORY: Injury, pain TECHNIQUE: Axial noncontrast imaging of the thoracic spine was performed. Sagittal and coronal reform atted images were constructed. Dose reduction technique was used on this scan by utilizing automated exposure control and iterative reconstruction technique. The dose-length product (DLP) was 1523.55 mG y-cm. FINDINGS: There is no fracture or subluxation of the thoracic spine. Vertebral bodies maintain normal height and oriented. There are minimal scattered degenerative disc changes in the thoracic spine. No significant disc bulge or herniation clearly identified. There is mild facet arthropathy at T11-T1 2 and T10-T11. No definite canal stenosis or cord compression seen. There is probable mild bilateral neural foraminal narrowing at T8-T9, T9-T10, T10-T11. Paravertebral soft tissues are unremarkable. Impression: Mild degenerative spondylosis, as above. No acute abnormality evident. Reviewed, dictated and finalized at [facility]. Impression: Mild degenerative spondylosis, as above. No acute abnormality evident.
[2023-10-24 22:25] VITALS: BP 124/82; PULSE 94; RESP 18; TEMP 36.2; O2SAT 97
--- NOTE | 2023-10-24 23:20 | ECG_ITS ---
[facility] [address] Test Date: 2023-10-24 Pat Name: Boo Cortez Department: Room: Gender: M [employer] Tender: : 1970 Requested By: Franklin Travis Order Number: [id number] Barbie MD: Asher Pérez M.D. Measurements Intervals [place] Rate: 80 P: 48 ND: 173 QRS: 40 QRSD: 82 T: 30 QT: 367 QTc: 424 Interpretive Statements SINUS RHYTHM NORMAL ELECTROCARDIOGRAM No previous ECG available for comparison Electronically Signed On 10-25-2023 09:09:03 CDT by Asher Pérez M.D.
[2023-10-24 23:55] VITALS: BP 118/66; PULSE 73; RESP 16; O2SAT 97
--- NOTE | 2023-10-25 00:17 | ED.BACK ---
HPI - Back Pain/Injury General Chief Complaint: Back Pain/Injury Stated Complaint: back pain Time Seen by Provider: 10/24/23 23:54 Source: patient Mode of arrival: ambulatory Limitations: no limitations History of Present Illness HPI Narrative: This is a 53-year-old male who presents to the ED with chief complaint of mid back pain following injury that occurred a couple weeks ago. Patient reports that he started to have some straining and is back after mowing the lawn and doing outside work. This week he tried doing a couple stretches including using the foam roller. Reports that he felt some pops and cracks while doing this. Initially he thought it was relieving, however he is still having significant pain. Reports pain to the middle of the interscapular spine that does not radiate. denies numbness, weakness, bowel or bladder dysfunction, fevers, chills or IV drug use. Related Data Home Medications Medication Instructions Recorded Confirmed metoprolol succinate 100 mg 100 mg PO DAILY 06/21/20 06/26/22 tablet,extended release 24 hr olanzapine 10 mg tablet 10 mg PO HS 06/21/20 06/26/22 citalopram 40 mg tablet 40 mg PO HS 06/26/22 06/26/22 trazodone 50 mg tablet 100 mg PO HS PRN Insomnia 06/26/22 06/26/22 Allergies Allergy/AdvReac Type Severity Reaction Status Date / Time No Known Allergies Allergy Unknown Verified 10/24/23 22:27 Review of Systems Review of Systems: All systems as dictated in HPI [facility] Past Medical History Medical History Anxiety Hypertension Mood disorder Panic disorder Surgical History Surgical History Hx of appendectomy Family History Family History Father Mental disorder Social History Social History (Updated 06/26/22 @ 15:46 by Alondra Huitron NP) Social History: He lives with his mom. His father committed suicide at the age of 40. The patient is single and has no children. The patient is disabled. The patient does occasionally use marijuana and he does use E cigarettes and vapes. Code status full code Smoking status: Never smoker Tobacco type: e-cigarettes/vaping Alcohol intake: never Substance use: current Substance use type: marijuana Lack of Transportation: No Lack of Food: Never True Current Housing: I Have Housing Concerned About Future Housing: No Difficulty Paying Gas/Electric Bills: No Difficulty Paying for Meds: No Currently Unemployed: No Education: High School Diploma/GED Difficulty w/ Childcare or Family Care: No Spiritual care concerns: No Exam Narrative: GENERAL: Well-appearing, well-nourished, and in no acute distress. HEAD: Normocephalic, atraumatic. EYES: PERRLA and EOMI. ENT: Nares clear, no rhinorrhea or epistaxis. Mucous membranes moist. Oropharynx without tonsillar hypertrophy exudate or other lesions. NECK: Supple. No adenopathy or masses. CHEST: No respiratory distress. Clear to auscultation. No wheezes rales or rhonchi HEART: Regular rate and rhythm. No murmur heard. Normal peripheral pulses. ABDOMEN: Soft, nontender, nondistended, normal active bowel sounds. MSK: Mild tenderness to the midline of the thoracic spine in the interscapular area. But no other midline tenderness. 5/5 strength and sensation in the upper and lower extremities. SKIN: Warm, dry, no rash. NEURO: Alert and oriented x3. No focal deficits. PSYCH: Normal mood and affect. Course Vital Signs Vital signs: Vital Signs Temperature 97.2 F L 10/24/23 22:25 Pulse Rate 94 10/24/23 22:25 Respiratory Rate 18 10/24/23 22:25 Blood Pressure 124/82 10/24/23 22:25 Pulse Oximetry 97 10/24/23 22:25 Oxygen Delivery Room Air 10/24/23 22:25 Temperature 97.2 F L 10/24/23 22:25 Pulse Rate 82 10/25/23 01:48 Respiratory Rate 16
[2023-10-25] MEDS: ACETAMINOPHEN 500 MG TABLET 1000 MG PO (00:30)
[2023-10-25] MEDS: KETOROLAC 30 MG/ML VIAL (*BKC) IM (00:31)
[2023-10-25 01:48] VITALS: BP 127/81; PULSE 82; RESP 16; O2SAT 96
== END 2023-10-25 01:49 | disposition home or self-care (01) ==
PROVIDERS: Emergency Provider Physician Assistant; PCP Student in an Organized Health Care Education/Training Program
DX: S29.012A Strain of muscle and tendon of back wall of thorax, initial encounter (principal); I10 Essential (primary) hypertension; F41.9 Anxiety disorder, unspecified; F17.290 Nicotine dependence, other tobacco product, uncomplicated; F39 Unspecified mood [affective] disorder; Z79.899 Other long term (current) drug therapy; M47.816 Spondylosis without myelopathy or radiculopathy, lumbar region; X58.XXXA Exposure to other specified factors, initial encounter
CPT/HCPCS: 72128; 93005; 96372; 99284; A9270; J1885

== ENCOUNTER 2023-11-29 23:41 | Emergency (ER) | payer MEDICARE, MEDICAID, SELFPAY | END 2023-11-30 00:36 | disposition left against medical advice (07) | LOC: ANHED 11-30 00:06 | PROVIDERS: PCP Student in an Organized Health Care Education/Training Program | DX: Z53.21 Procedure and treatment not carried out due to patient leaving prior to being seen by health care provider (principal) | CPT/HCPCS: 99199 ==

== ENCOUNTER 2023-12-03 18:46 | Emergency (ER) | payer MEDICARE, MEDICAID, SELFPAY ==
--- NOTE | ~2023-12-03 | CT_ITS ---
EXAMINATION: CT abdomen pelvis w con DATE: 12/03/2023 21:55 INDICATION: LUQ pain after forceful cough TECHNIQUE: Computed tomography (CT) of the abdomen and pelvis was performed with 100 mL Omnipaque-350 intravenous contrast. Automated exposure control and iterative reconstruction technique were employe d. The dose-length product was 1540.90 mGy-cm. COMPARISON: 04/06/2022. FINDINGS: Lower thorax: Unremarkable Liver: Enlarged. Fatty infiltrated. Biliary/Gallbladder: Gallbladder is normal. No bile duct dilation. Pancreas: No mass or duct dilation. Spleen: Normal. Adrenals:No mass. Kidneys: No suspicious mass, obstructing stone, or hydronephrosis. GI tract: No small or large bowel dilation. Normal appendix. Mesentery/Peritoneum: No ascites, mass, or free air. Retroperitoneum: No mass. Pelvis: Pelvic organs are within normal limits. Soft Tissues: Moderate sized, uncomplicated appearing fat-containing supraumbilical ventral hernias. Small uncomplicated appearing fat-containing bilateral inguinal hernias. Bones: No acute osseous finding. IMPRESSION: Hepatomegaly and steatosis. No acute abdominopelvic process detected. Reviewed, dictated and finalized at location K.
[2023-12-03 18:48] VITALS: BP 153/80; PULSE 76; RESP 18; TEMP 36.6; O2SAT 99
[2023-12-03 21:04] LABS: Appearance Urine Clear (Clear); Bilirubin Urine Negative (Negative); Blood Urine Negative (Negative); Color Urine Yellow (Yellow); Glucose Urine UA Negative (Negative); Ketones Urine Negative (Negative); Leukocyte Esterase Ur Negative LEU/UL (Negative); Nitrate Urine Negative (Negative); Protein Urine Negative (Negative); Urobilinogen Urine 0.2 mg/dL (<2.0)
[2023-12-03 21:05] LABS: Basophils Absolute Auto 0.1 K/mm3 (0.0-0.1); Basophils Percent Auto 0.9 % (0.2-1.2); Eosinophils Absolute Auto 0.3 K/mm3 (0-0.3); Eosinophils Percent Auto 2.4 % (0-4.4); Hematocrit 44.3 % (42.0-52.0); Immature Granulocyte Absolute 0.05 K/mm3 (0.00-0.031); Immature Granulocyte Percent A 0.5 % (0-0.5); Lymphocytes Absolute Auto 3.26 K/mm3 (0.9-3.2); Lymphocytes Percent Auto 31.9 % (18.3-44.2); Mean Corpuscular HGB Conc 33.9 g/dl (32-36); Mean Corpuscular Hemoglobin 33.3 pg (26-34); Mean Corpuscular Volume 98.4 fl (80-100); Mean Platelet Volume 11.2 fl (7.4-10.4); Monocytes Absolute Auto 0.7 K/mm3 (0.1-0.6); Monocytes Percent Auto 7.1 % (2.6-8.5); Neutrophils Absolute Auto 5.9 K/mm3 (1.3-6.7); Neutrophils Percent Auto 57.2 % (45.5-73.1); Platelet Count Result 218 k/mm3 (150-375); Red Cell Distribution Width 12.5 % (11.5-14.5); White Blood Count 10.2 K/mm3 (4.5-10.0)
[2023-12-03 21:07] LABS: Add Urine Microscopic? NO
[2023-12-03 21:25] LABS: Alanine Aminotransferase 55 U/L (6-50); Alkaline Phosphatase 80 U/L (38-126); Anion Gap 12 mmol/L (4-12); Aspartate Amino Transferase 50 U/L (17-59); Bilirubin,Total 0.6 mg/dL (0.2-1.3); Blood Urea Nitrogen 14 mg/dL (9-20); Calcium 9.8 mg/dL (8.4-10.2); Carbon Dioxide 23 mmol/L (22-30); Chloride 103 mmol/L (98-107); Estimated CRCL calculation 108 ml/min; Estimated Glomerular Filt Rate > 60; Glucose 95 mg/dL (65-110); Lipase 356 U/L (23-300); Potassium 4.3 mmol/L (3.4-5.0); Sodium 138 mmol/L (137-145)
[2023-12-03 22:24] VITALS: BP 144/82; PULSE 70; RESP 16; TEMP 36.3; O2SAT 96
--- NOTE | 2023-12-03 22:25 | ED.ABDPAIN ---
HPI - Abdominal Pain General Chief Complaint: Abdominal Pain Stated Complaint: LUQ pain Time Seen by Provider: 12/03/23 20:37 Source: patient Mode of arrival: ambulatory Limitations: no limitations History of Present Illness HPI narrative: Patient is a 53-year-old male who presents the ED with report of left upper abdominal pain. Patient reports he had a forceful cough 3-5 days ago and felt a strain in his left upper abdomen. He has had persistent pain in his left-sided abdomen since then, worse with coughing, blowing his nose, movement. He has not tried anything for pain. He denies nausea, vomiting, diarrhea, constipation, fevers, difficulty urinating, shortness of breath or difficulty breathing. He does have known ventral wall hernia. Denies changes in this. Related Data Home Medications Medication Instructions Recorded Confirmed metoprolol succinate 100 mg 100 mg PO DAILY 06/21/20 06/26/22 tablet,extended release 24 hr olanzapine 10 mg tablet 10 mg PO HS 06/21/20 06/26/22 citalopram 40 mg tablet 40 mg PO HS 06/26/22 06/26/22 trazodone 50 mg tablet 100 mg PO HS PRN Insomnia 06/26/22 06/26/22 Allergies Allergy/AdvReac Type Severity Reaction Status Date / Time No Known Allergies Allergy Unknown Verified 12/03/23 18:47 Review of Systems Review of Systems: CONSTITUTIONAL: Denies fever, chills, or sweats. GASTROINTESTINAL: see HPI. GENITOURINARY: Denies dysuria or hematuria. MUSCULOSKELETAL: Denies back pain, extremity pain, myalgia. All systems reviewed & are unremarkable except as noted in HPI and below PMFSH Past Medical History Medical History Anxiety Hypertension Mood disorder Panic disorder Surgical History Surgical History Hx of appendectomy Family History Family History Father Mental disorder Social History Social History Social History: He lives with his mom. His father committed suicide at the age of 40. The patient is single and has no children. The patient is disabled. The patient does occasionally use marijuana and he does use E cigarettes and vapes. Code status full code Smoking status: Never smoker Tobacco type: e-cigarettes/vaping Alcohol intake: never Substance use: current Substance use type: marijuana Lack of Transportation: No Lack of Food: Never True Current Housing: I Have Housing Concerned About Future Housing: No Difficulty Paying Gas/Electric Bills: No Difficulty Paying for Meds: No Currently Unemployed: No Education: High School Diploma/GED Difficulty w/ Childcare or Family Care: No Spiritual care concerns: No Exam Narrative: GENERAL: Well appearing, morbidly obese with BMI of 41.8, non-toxic, in no acute distress. HEAD: Normocephalic, atraumatic. RESPIRATORY: Airway patent, respirations nonlabored. Clear to auscultation bilaterally, no rales, rhonchi, wheezing. No splinting. CARDIOVASCULAR: Regular rate and rhythm ABDOMINAL: Soft, mild tenderness in L mid and upper abdomen, no rebound. Nondistended. Normoactive BS. MUSCULOSKELETAL: Moves all extremities. No gross deformities. SKIN: Warm, dry, normal color. NEURO: A&O X3. Speech clear. PSYCHIATRIC: Mildly anxious. Normal interaction. Course Vital Signs Vital signs: Vital Signs Temperature 97.9 F 12/03/23 18:48 Pulse Rate 76 12/03/23 18:48 Respiratory Rate 18 12/03/23 18:48 Blood Pressure 153/80 H 12/03/23 18:48 Pulse Oximetry 99 12/03/23 18:48 Oxygen Delivery Room Air 12/03/23 18:48 Temperature 97.4 F L 12/03/23 22:24 Pulse Rate 70 12/03/23 22:24 Respiratory Rate 16 12/03/23 22:24 Blood Pressure 144/82 H 12/03/23 22:24 Pulse Oximetry 96 12/03/23 22:24 Oxygen Delivery Room Air
[2023-12-03] MEDS: ACETAMINOPHEN 500 MG TABLET 1000 MG PO (22:31)
[2023-12-03] MEDS: KETOROLAC 30 MG/ML VIAL (*BKC) IV PUSH (22:32)
== END 2023-12-03 22:38 | disposition home or self-care (01) ==
PROVIDERS: Emergency Provider Physician Assistant; PCP Student in an Organized Health Care Education/Training Program
DX: S39.011A Strain of muscle, fascia and tendon of abdomen, initial encounter (principal); F17.290 Nicotine dependence, other tobacco product, uncomplicated; F41.9 Anxiety disorder, unspecified; I10 Essential (primary) hypertension; X50.0XXA Overexertion from strenuous movement or load, initial encounter
CPT/HCPCS: 36415; 74177; 80053; 81003; 83690; 85025; 96374; 99284; A9270; J1885; Q9967

== ENCOUNTER 2024-05-01 12:09 | Outpatient (CLI) | payer MEDICARE, MEDICAID, SELFPAY ==
--- OUTSIDE RECORDS SUMMARY | 2024-05-01 12:53 | XMS_ITS | CONTINUITY OF CARE DOCUMENT ---
Author Name agustín randolph Address Unknown Organization [facility] Office Address [address] [place] [address] [address] [place] [address] Phone [phone] Care Team Providers Care Pier Hand Helper Name Role Phone Francis Jane MD Unavailable Francis Jane MD Unavailable [phone] INSURANCE PROVIDERS Payer name Policy type / Coverage type Mee red libertarian [employer] Medicaid [place] MED[employer] Medicare [id number]
== END 2024-05-01 12:10 | disposition home or self-care (01) ==
LOC: ANHSURGERY 12:15
PROVIDERS: PCP Student in an Organized Health Care Education/Training Program; Visit Provider Surgery
DX: K43.6 Other and unspecified ventral hernia with obstruction, without gangrene (principal); Z01.818 Encounter for other preprocedural examination
CPT/HCPCS: 36415; 86850; 86900; 86901

== ENCOUNTER 2024-05-07 01:09 | Day surgery (SDC) | payer MEDICARE, MEDICAID, SELFPAY ==
[2024-04-30 13:15] VITALS: BMI 40.5
--- NOTE | 2024-04-30 13:24 | PC.NURSE ---
Report to the Outpatient Waiting Room, entrance under the green pavilion located off [facility], at time _1000_ on date _[id number]_. Planned Procedure Time: _1200_.? Time changes happen often and if your time is changed the preop area will call you the afternoon before. - You and your visitor will be asked to self-screen and do not enter if you have any COVID symptoms. Please call surgeon if you need to reschedule. - A mask is optional within the hospital at this time. Patients may have clear liquids (water, carbonated beverages, clear teas, apple juice) until 3 hours prior to surgery with a maximum of 20 ounces. - No food from midnight until time of surgery and no smoking. This includes no chewing gum, candy or mints. Take only the following medications with a SIP of water on the morning of surgery: ___Metoprolol and Clonazepam DO NOT STOP ANY OF YOUR OTHER PRESCRIPTION MEDICATIONS PRIOR TO SURGERY EXCEPT THE FOLLOWING Medications to discontinue per physician ___None____ Please no make-up, nail nepali, hairspray, perfume, deodorant, or body powder the day of surgery.? No jewelry (including any body piercings) or valuables the day of surgery, leave them at home.? Please take a shower or bath the night before, or the morning of, surgery with an antibacterial soap.? Wear comfortable, loose fitting clothing.? . - Jewelry must be removed prior to entering the operating room.? Rings and piercings that are not removed may be cut off. - The hospital will not accept responsibility for valuables.? - Please leave all valuables, including medications, at home the day of surgery. If you are going home after surgery, a licensed tow bar driver must drive you home.? - NO public transportation without another adult if you receive anesthesia. - We recommend that an adult stay with you for 24 hours following discharge. - We also recommend that you do not drive, make important decision, drink alcoholic beverages, or take any drugs that were not prescribed by your health care provider for at least 24 hours after your discharge time. Follow any additional instructions given to you from your surgeon. Telephone instructions given to _Boo__and asked if any additional questions and then verbalized understanding. Patient advised to call surgeon office or pre surgery nurse liaison [phone] if any additional questions.
--- NOTE | 2024-05-04 16:16 | P.SS_ITS ---
Same Day Admit/Disch: HPI History of Present Illness Chief complaint: incarcerated ventral hernia 4cm Narrative: Boo Cortez is a 53 year old male who noticed a bulge in the umbilical area quite sometime ago. Within the last year the bulge has been getting bigger and is occasionally painful especially with activity. CT scan 12/03/2023 showed both a supraumbilical and adjacent umbilical hernia. The length of these 2 defects is 5.5 cm. Patient was seen in the office and the supraumbilical hernia is more tender and not reducible. He is taken to surgery now for robotic laparoscopic repair of these ventral hernias with mesh. [facility] Past Medical History Medical History Mood disorder Anxiety Panic disorder Hypertension Surgical History Surgical History Hx of appendectomy open appendectomy Family History Family History Father Mental disorder Social History Social History Social History: He lives with his mom. His father committed suicide at the age of 40. The patient is single and has no children. The patient is disabled. The patient does occasionally use marijuana and he does use E cigarettes and vapes. Code status full code Smoking packs per day: 1 Smoking cigarettes per day: 20.0 Years smoked: 30 Smoking pack-years: 30.00 Smoking status: Former smoker Tobacco type: cigarettes Smoking end date: 04/30/18 Alcohol intake: never Substance use: current Substance use type: marijuana Lack of Transportation: No Lack of Food: Never True Current Housing: I Have Housing Concerned About Future Housing: No Difficulty Paying Gas/Electric Bills: No Difficulty Paying for Meds: No Currently Unemployed: No Education: High School Diploma/GED Difficulty w/ Childcare or Family Care: No Living arrangements: with family Spiritual care concerns: No Same Day Admit/Disch: Med Pre-admit Medications Home Medications ?Medication ?Instructions ?Recorded ?Confirmed ?Type metoprolol succinate 100 mg 100 mg PO DAILY 06/21/20 05/07/24 History tablet,extended release 24 hr olanzapine 10 mg tablet 10 mg PO HS 06/21/20 04/30/24 History citalopram 40 mg tablet 40 mg PO HS 06/26/22 04/30/24 History trazodone 50 mg tablet 100 mg PO HS PRN Insomnia 06/26/22 04/30/24 History clonazepam 1 mg tablet 1 mg PO TID 1 day #3 tabs 07/02/22 05/07/24 Rx lisinopril 10 mg tablet 10 mg PO DAILY 30 days #30 tabs 07/02/22 04/30/24 Rx famotidine 20 mg tablet 20 mg PO Q12H 04/30/24 04/30/24 History ketorolac 10 mg tablet 10 mg PO Q6H 4 days #16 tabs 05/07/24 Rx oxycodone-acetaminophen 5 mg-325 0.5 - 1 tablet PO Q4H PRN pain #15 05/07/24 Rx mg tablet (Percocet) tabs Review of Systems Review of Systems All systems reviewed & are unremarkable except as noted in HPI and below (HPI) Exam Const: General: cooperative, comfortable, no acute distress, alert and awake Nutritional Appearance: obese Orientation/consciousness: No confusion HENMT: Head: normocephalic and atraumatic Mouth: Yes Normal oral and palatal mucosa present Eyes: Conjunctivae: conjunctivae normal Pupils: Equal, round and reactive pupils present EOM: EOMs intact bilaterally Neck: Neck: normal visual inspection, no lymphadenopathy and nontender Resp: Effort & Inspection: normal respiratory effort Auscultation: clear to auscultation bilaterally Cardio: Rate: regular rate Rhythm: regular rhythm Heart sounds: no gallops, no murmurs and no rubs GI: Inspection: non-distended, obesity and visible herniation (Above umbil icus) GI Palp: Yes Soft to palpation, No Tenderness to palpation present (GI), No Hepatomegaly present, No Splenomegaly present and Yes Hernia present ventral (None reducible 4-5 cm supraumbilical hernia noted.) 3-10 cm Skin: Lesions: no lesions Rashes: no rashes Neuro: General: no focal motor deficits and CN's II-XI intact bilaterally Cranial nerves: Yes Equal, round and reactive pupils present, Yes Bilaterally intact EOM present, Yes facial symmetry and Yes Midline tongue present Speech: normal speech Motor exam (neuro): 5/5 motor strength present t hroughout and Motor abnormalities not present Extrem: General: no clubbing, cyanosis or edema and edema Psych: Affect: normal affect Thought process: Normal thought process present Insight: Good insight present (Psych) DS: Summary Time Spent with Patient Time attestation: Total time spent providing and/or coordinating discharge services: DS: Admitting Diagnosis Discharge Date 05/07/2024 Admitting Diagnosis * Incarcerated ventral hernia with 5.5 cm defect, symptomatic-plan to proceed with robotic laparoscopic repair with mesh. Procedure, risks, benefits, alternatives have been discussed with the patient and his mother. All questions were answered. He understands and agrees to go ahead. * Mental illness with anxiety and panic attacks-patient disabled with this * Smoker * Morbid obesity * COPD DS: Discharge Diagnosis Discharge Diagnosis (1) Incarcerated ventral hernia: Code(s): K43.6 - Other and unspecified ventral hernia with obstruction, without gangrene Status: Chronic Assessment and Plan: Robotic laparoscopic repair with mesh performed 05/07/[address] Ragsdale Discharge Plan Discharge Patient Disposition: Home, Self-Care Discharge Instructions: 1. May shower the day after surgery over incisions. 2. Call office for: -Wound increasingly painful or bleeding -Vomiting -Fever of greater than 101 degrees 3. Expect some blood on dressing and old blood on skin. 4. If no bowel movement for three days, take 1 oz. (30 ml) Milk of Magnesia, if no results, take Fleets enema. 5. No heavy lifting > 15-20 pounds for 2 weeks. 6. No driving for 3 days or while taking narcotic pain medications. 7. Up walking 10-30 minutes three times per day. 8. Resume previous home medications. 9. Follow-up 10-14 days in office for wound check or as previously scheduled. 10. Oral pain medications prescription to be sent home with patient. 11. NUTRITION: Start out by drinking fluids and increase your diet as tolerated. If you experience nausea, try dry toast, crackers, and 7-UP. If nausea or vomiting persists, contact your surgeon?s office. Patient Language: Polish Stand Alone Forms: General Discharge Instructions Follow-up/Referrals: Jeremiah Ragsdale MD [Physician] - 3 Weeks Discharge Medications: New ketorolac 10 mg tablet 10 mg PO Q6H 4 Days Qty: 16 0RF oxycodone-acetaminophen [Percocet] 5-325 mg tablet 0.5 - 1 tablet PO Q4H PRN (Reason: pain) Qty: 15 0RF Continued metoprolol succinate 100 mg tablet extended release 24 hr 100 mg PO DAILY olanzapine 10 mg tablet 10 mg PO HS citalopram 40 mg tablet 40 mg PO HS trazodone 50 mg tablet 100 mg PO HS PRN (Reason: Insomnia) clonazepam 1 mg tablet 1 mg PO TID 1 Days Qty: 3 0RF lisinopril 10 mg Tablet 10 mg PO DAILY 30 Days Qty: 30 0RF famotidine 20 mg tablet 20 mg PO Q12H
[2024-05-07] VITALS (9 sets, daily range): BP systolic 108–168; BP diastolic 55–104; PULSE 64–80; RESP 14–19; TEMP 36.1–37.4; O2SAT 98–100
[2024-05-07] MEDS: LACTATED RINGERS 1,000 ML 30 ML IV CONT (10:50)
[2024-05-07] MEDS: ACETAMINOPHEN 500 MG TABLET 1000 MG PO (10:50)
[2024-05-07] MEDS: KETOROLAC 15 MG/ML VIAL (*BKC) IV PUSH (10:50)
--- NOTE | 2024-05-07 11:39 | WPDHPUPDATE1 ---
History and Physical Update Update Date/Time: 05/07/24 11:39 History and Physical has been reviewed, including an updated exam of the patient. There are NO changes in the patient's condition. Risks, benefits, and alternatives have been discussed and questions answered. Patient agrees to proceed with procedure.
--- NOTE | 2024-05-07 11:46 | WPDANESEPPF ---
Anes - Initial Pre Proc Eval Procedure: Operation Date: 05/07/24 12:00 Proposed Procedures p Robotic Repair Incarcerated Ventral Hernia with Mesh - Jeremiah Ragsdale MD Date/Time: 05/07/24 11:46 Surgeon: Jeremiah Ragsdale MD Pre Op Diagnosis: incarcerated ventral hernia 4cm Patient Data Age: 53 Gender: M Height: 1.8 m Weight: 129.9 kg Last Vital Signs Temp 36.1 C L 05/07/24 10:53 Pulse 80 05/07/24 10:53 Resp 14 05/07/24 10:53 BP 143/88 H 05/07/24 10:53 Pulse Ox 98 05/07/24 10:53 O2 Del Method Room Air 05/07/24 10:53 Allergies Allergy/AdvReac Type Severity Reaction Status Date / Time No Known Allergies Allergy Unknown Verified 05/07/24 10:59 Home Medications ?Medication ?Instructions ?Recorded ?Confirmed ?Type metoprolol succinate 100 mg 100 mg PO DAILY 06/21/20 05/07/24 History tablet,extended release 24 hr olanzapine 10 mg tablet 10 mg PO HS 06/21/20 04/30/24 History citalopram 40 mg tablet 40 mg PO HS 06/26/22 04/30/24 History trazodone 50 mg tablet 100 mg PO HS PRN Insomnia 06/26/22 04/30/24 History clonazepam 1 mg tablet 1 mg PO TID 1 day #3 tabs 07/02/22 05/07/24 Rx lisinopril 10 mg tablet 10 mg PO DAILY 30 days #30 tabs 07/02/22 04/30/24 Rx famotidine 20 mg tablet 20 mg PO Q12H 04/30/24 04/30/24 History Patient hx anesthesia problems: none Family hx anesthesia problems: none Results Review: All pre-operative results and documents have been reviewed as part of the pre-operative evaluation. [facility] Past Medical History Medical History Mood disorder Anxiety Panic disorder Hypertension Surgical History Surgical History Hx of appendectomy open appendectomy Family History Family History Father Mental disorder Social History Social History Social History: He lives with his mom. His father committed suicide at the age of 40. The patient is single and has no children. The patient is disabled. The patient does occasionally use marijuana and he does use E cigarettes and vapes. Code status full code Smoking packs per day: 1 Smoking cigarettes per day: 20.0 Years smoked: 30 Smoking pack-years: 30.00 Smoking status: Former smoker Tobacco type: cigarettes Smoking end date: 04/30/18 Alcohol intake: never Substance use: current Substance use type: marijuana Lack of Transportation: No Lack of Food: Never True Current Housing: I Have Housing Concerned About Future Housing: No Difficulty Paying Gas/Electric Bills: No Difficulty Paying for Meds: No Currently Unemployed: No Education: High School Diploma/GED Difficulty w/ Childcare or Family Care: No Living arrangements: with family Spiritual care concerns: No Anes - Eval Final PreProcedure Day of Procedure 05/07/24 11:46 Patient weight: morbidly obese Heart: regular rate and rhythm Lungs: clear to auscultation Airway: Mallampati scale class II Neurological: alert and oriented Last oral intake: >/= 8 hours ASA classification: III Emergent: no Anesthetic plan: proceed Anesthesia type and monitoring: general ETT and standard monitoring Results Review: All pre-operative results and documents have been reviewed as part of the pre-operative evaluation. Informed Consent: The patient's anesthetic plan and its attendant risks and benefits were discussed with the patient/family/POA. Questions were solicited and answers provided to the satisfaction of the patient/family/POA.
[2024-05-07] MEDS: ceFAZolin 3 GM/D5W 100 ML 100 ML IVPB (11:55)
[2024-05-07] MEDS: BUPIVACAINE/EPINEPHRINE 0.5% 50 ML VIAL 30 ML INFILTRATE (12:25)
--- NOTE | 2024-05-07 13:58 | P.OP_ITS ---
Procedure Note - Detailed Date of Procedure 05/07/24 Pre-op Diagnosis incarcerated ventral hernia 4cm Post-op Diagnosis Same Procedure Performed Robotic laparoscopic repair 4 cm incarcerated ventral hernia with mesh Surgeon Jeremiah Ragsdale MD Labor Standards Director Richard CASTREJON Anesthesia General and Local Indications Patient noticed a bulge above and just barely into the umbilicus. His primary care physician ordered a CT scan which showed a supraumbilical ventral hernia. He was seen in the office and found to have an incarcerated ventral hernia close to the just above the umbilicus which was not reducible. He is taken to surgery now for robotic laparoscopic repair with mesh Findings Patient actually had 2 hernia defects. One was at the umbilicus and the other was about 2 cm above the umbilicus. The supraumbilical hernia was incarcerated with omentum. The overall length of the hernia repair with both defects and the intervening tissue was 4.5 cm. Description of Procedure Patient was checked in the preoperative holding area. He was then taken to surgery and induced into general anesthesia. The abdomen is prepped and draped. Trocars were placed in the usual fashion on the left side of the abdomen laterally. We started with a 5 mm applied Medical optical trocar in the left subcostal position. Once intraperitoneal location was carried out, 2 robotic trocars were placed and the camera was moved so that the initial trocar could be switched out for an 8 mm robotic trocar. The robotic arms were brought into the field and the camera was docked and targeted. The operating arms were docked and the instruments position near the hernia defects. Surgeon then went to the robotic console. The 2 hernia defects were reduced of omentum. The supraumbilical defect had a lot of omentum that was reduced and had been incarcerated. Dissection was then carried out to free the falciform ligament from the cephalad aspect of the anticipated hernia repair. Some of the midline fatty tissue caudal to the repair was likewise taken down so that the mesh could be sutured directly to the abdominal wall. An 0 Stratafix suture was then introduced. The hernia defect was closed in running fashion longitudinally. A 15 x [address] oval shaped mesh was then introduced. It was unrolled and the Stratafix needle was used to secure the mesh over the repair such that it was positioned symmetrically. I then used running 2 0 V lock suture and ran a baseball stitch around the mesh circumferentially. This was done so that the mesh was flat and under a mild amount of tension as it was affixed to the anterior abdominal wall. Some residual V lock suture was used to further secure the mesh to the anterior abdominal wall near the mesh is center. All looked good. The needles that had been used were removed from the abdomen. Recheck of the operation site and the rest of the abdomen was negative. All looked very good. We then removed the instruments and undocked the robot. CO2 gas was evacuated. The trocars were removed and skin wounds were closed with subcuticular 4-0 Monocryl skin suture. The wounds were dressed with Exofin surgical adhesive. Patient was taken to the recovery room in good condition. Sponge and needle counts were correct x2. Implants 10 x [address] oval mesh Estimated Blood Loss -5 Drains No Packing No Pathology None sent Complications None Condition Stable Disposition PACU [facility] Billing Surgery - Charge Forward: Surgery Billing (Robotic laparoscopic repair incarcerated ventral hernia with 4.5 cm defect with mesh)
== END 2024-05-07 15:30 | disposition home or self-care (01) ==
PROVIDERS: PCP Student in an Organized Health Care Education/Training Program; Visit Provider Surgery
PROC: (CPT 49594; principal; 2024-05-07 12:00)
DX: K43.6 Other and unspecified ventral hernia with obstruction, without gangrene (principal); G89.18 Other acute postprocedural pain; I10 Essential (primary) hypertension; F41.9 Anxiety disorder, unspecified; F39 Unspecified mood [affective] disorder; F41.0 Panic disorder [episodic paroxysmal anxiety]; F17.290 Nicotine dependence, other tobacco product, uncomplicated; F12.90 Cannabis use, unspecified, uncomplicated; E66.01 Morbid (severe) obesity due to excess calories; Z68.39 Body mass index [BMI] 39.0-39.9, adult; Z79.891 Long term (current) use of opiate analgesic; Z98.890 Other specified postprocedural states
CPT/HCPCS: 49594; S2900; A9270; C1781; J0690; J1100; J1885; J2003; J2250; J2405; J2704; J3010; J7120

== ENCOUNTER 2024-05-17 21:27 | Emergency (ER) | payer MEDICARE, MEDICAID, SELFPAY ==
[2024-05-17 21:39] VITALS: BP 126/83; PULSE 82; RESP 20; TEMP 36.6; O2SAT 97
--- NOTE | 2024-05-17 23:49 | ED_ITS ---
HPI - Abdominal Pain General Chief Complaint: Abdominal Pain Stated Complaint: left abd pain after hernia surgery on 05/07 Time Seen by Provider: 05/17/24 23:35 Source: patient Mode of arrival: ambulatory Limitations: no limitations History of Present Illness HPI narrative: This is a 53 year old male who presents to the ED for chief complaint of left lower quadrant abdominal pain onset times 7-10 days. States that he had hernia repair with Dr. Ragsdale on 05/07 and noticed some bruising to the abdomen a couple of days later. States that he accidentally fell 2 days ago and the abdominal pain increased. He does confirm the bruising started before the fall. Endorses nausea/vomiting whenever trying to take his pain medication over the last couple of days. Denies lightheadedness, syncope, diarrhea, fevers, chills, urinary symptoms, chest pain, shortness of breath. Related Data Home Medications ?Medication ?Instructions ?Recorded ?Confirmed ?Last Taken ?Type metoprolol succinate 100 mg 100 mg PO DAILY 06/21/20 05/07/24 05/07/24 History tablet,extended release 24 hr olanzapine 10 mg tablet 10 mg PO HS 06/21/20 04/30/24 08/01/21 History citalopram 40 mg tablet 40 mg PO HS 06/26/22 04/30/24 Unknown History trazodone 50 mg tablet 100 mg PO HS PRN Insomnia 06/26/22 04/30/24 Unknown History famotidine 20 mg tablet 20 mg PO Q12H 04/30/24 04/30/24 Unknown History Allergies Allergy/AdvReac Type Severity Reaction Status Date / Time No Known Allergies Allergy Unknown Verified 05/17/24 21:29 Review of Systems Review of Systems: All systems as dictated in HPI [facility] Past Medical History Medical History Mood disorder Anxiety Panic disorder Hypertension Surgical History Surgical History Hx of appendectomy open appendectomy Family History Family History Father Mental disorder Social History Social History Social History: He lives with his mom. His father committed suicide at the age of 40. The patient is single and has no children. The patient is disabled. The patient does occasionally use marijuana and he does use E cigarettes and vapes. Code status full code Smoking packs per day: 1 Smoking cigarettes per day: 20.0 Years smoked: 30 Smoking pack-years: 30.00 Smoking status: Former smoker Tobacco type: cigarettes Smoking end date: 04/30/18 Alcohol intake: never Substance use: current Substance use type: marijuana Lack of Transportation: No Lack of Food: Never True Current Housing: I Have Housing Concerned About Future Housing: No Difficulty Paying Gas/Electric Bills: No Difficulty Paying for Meds: No Currently Unemployed: No Education: High School Diploma/GED Difficulty w/ Childcare or Family Care: No Living arrangements: with family Spiritual care concerns: No Exam Narrative: GENERAL: Well-appearing, well-nourished, and in no acute distress. HEAD: Normocephalic, atraumatic. EYES: PERRLA and EOMI. ENT: Nares clear, no rhinorrhea or epistaxis. Mucous membranes moist. Oropharynx without tonsillar hypertrophy exudate or other lesions. NECK: Supple. No adenopathy or masses. CHEST: No respiratory distress. Clear to auscultation. No wheezes rales or rhonchi HEART: Regular rate and rhythm. No murmur heard. Normal peripheral pulses. ABDOMEN: Extensive ecchymosis to the lower abdomen across the left lower quadrant. Minimal tenderness, however slightly tender to the left lower quadrant. Incision sites look intact well-healing. Soft, mildly distended, normal active bowel sounds. MSK: Normal range of motion. No edema. SKIN: Warm, dry, no rash. NEURO: Alert and oriented x4. No focal deficits. PSYCH: Normal mood and affect. Course Vital Signs Vital signs: Vital Signs Temperature 98 F 05/17/24 21:39 Pulse Rate 82 05/17/24 21:39 Respiratory Rate 20 05/17/24 21:39 Blood Pressure 126/83 05/17/24 21:39 Pulse Oximetry 97 05/17/24 21:39 Oxygen Delivery Room Air 05/17/24 21:39 Temperature 98 F 05/17/24 21:39 Pulse Rate 82 05/17/24 21:39 Respiratory Rate 20 05/17/24 21:39 Blood Pressure 126/83 05/17/24 21:39 Pulse Oximetry 97 05/17/24 21:39 Oxygen Delivery Room Air 05/17/24 21:39 MDM - Abdominal Pain MDM Narrative Medical decision making narrative: This is a 53-year-old male who presents to the ED for chief complaint of left lower abdominal pain s/p hernia repair 05/07/2024. Vitals are normal. Exam shows bruising to the abdomen but minimal tenderness. Patient is well-appearing on exam. Lab work remarkable for elevated lipase of 976. White count slightly elevated 12.9. CMP unremarkable. Urinalysis negative. Initially had offered CT imaging for further evaluation of this issue for the patient. He was given Toradol and Zofran IV. He is feeling much improved after this and would like to go home without having CT imaging. He feels comfortable following up with surgeon tomorrow. He has pain medications for home. I discussed that his symptoms may be consistent with a pancreatitis and then I cannot fully evaluate his pain without a CT imaging today. He is understanding of this and politely declines any further workup. Instructions for clear lipid diet. Rx for Zofran. Patient will be discharged in stable condition. Supportive measures discussed and return precautions given. Patient is understanding and agreeable with plan for discharge with PCP follow-up. Discharge Plan Discharge Clinical Impression: Elevated lipase Patient Disposition: Home, Self-Care Condition: Stable Instructions: Antibiotic Form, Clear Liquid Diet (ED) Additional Instructions: Your exam today is concerning for possible pancreatitis. Please follow a clear liquid diet as instructed. Please follow-up with Dr. Ragsdale closely on this issue. Continue to take your pain medications as needed. Use Zofran for nausea. Return to the ER for uncontrollable pain, vomiting or fevers Patient Language: [place] Prescriptions: New ondansetron 4 mg tablet,disintegrating 4 mg PO Q8H PRN (Reason: nausea and vomiting) Qty: 10 0RF No Action metoprolol succinate 100 mg tablet extended release 24 hr 100 mg PO DAILY olanzapine 10 mg tablet 10 mg PO HS citalopram 40 mg tablet 40 mg PO HS trazodone 50 mg tablet 100 mg PO HS PRN (Reason: Insomnia) clonazepam 1 mg tablet 1 mg PO TID 1 Days Qty: 3 0RF lisinopril 10 mg Tablet 10 mg PO DAILY 30 Days Qty: 30 0RF famotidine 20 mg tablet 20 mg PO Q12H ketorolac 10 mg tablet 10 mg PO Q6H 4 Days Qty: 16 0RF oxycodone-acetaminophen [Percocet] 5-325 mg tablet 0.5 - 1 tablet PO Q4H PRN (Reason: pain) Qty: 15 0RF Follow-up/Referrals: Moses,DO Rohit [Primary Care Provider] - Time of Disposition: 00:53
[2024-05-18] MEDS: ONDANSETRON INJ 4 MG/2 ML VIAL IV PUSH (00:06)
[2024-05-18] MEDS: KETOROLAC 30 MG/ML VIAL (*BKC) IV PUSH (00:06)
[2024-05-18 00:17] LABS: Add Urine Microscopic? NO; Appearance Urine Clear (Clear); Bilirubin Urine Negative (Negative); Blood Urine Negative (Negative); Color Urine Yellow (Yellow); Glucose Urine UA Negative (Negative); Ketones Urine Negative (Negative); Leukocyte Esterase Ur Negative LEU/UL (Negative); Nitrate Urine Negative (Negative); Protein Urine Negative (Negative); Specific Grav Ur 1.004 (1.001-1.035); Urobilinogen Urine 0.2 mg/dL (<2.0); pH Urine 5.5 (5.0-9.0)
[2024-05-18 00:19] LABS: Basophils Absolute Auto 0.1 K/mm3 (0.0-0.1); Basophils Percent Auto 0.5 % (0.2-1.2); Eosinophils Absolute Auto 0.3 K/mm3 (0-0.3); Eosinophils Percent Auto 2.2 % (0-4.4); Hematocrit 37.4 % (42.0-52.0); Hemoglobin 12.6 g/dL (14.0-18.0); Immature Granulocyte Absolute 0.11 K/mm3 (0.00-0.031); Immature Granulocyte Percent A 0.9 % (0-0.5); Lymphocytes Absolute Auto 3.67 K/mm3 (0.9-3.2); Lymphocytes Percent Auto 28.5 % (18.3-44.2); Mean Corpuscular HGB Conc 33.7 g/dl (32-36); Mean Corpuscular Hemoglobin 33.2 pg (26-34); Mean Corpuscular Volume 98.4 fl (80-100); Mean Platelet Volume 10.7 fl (7.4-10.4); Monocytes Absolute Auto 0.9 K/mm3 (0.1-0.6); Monocytes Percent Auto 7.1 % (2.6-8.5); Neutrophils Absolute Auto 7.9 K/mm3 (1.3-6.7); Neutrophils Percent Auto 60.8 % (45.5-73.1); Platelet Count Result 284 k/mm3 (150-375); Red Cell Distribution Width 13.2 % (11.5-14.5); White Blood Count 12.9 K/mm3 (4.5-10.0)
[2024-05-18 00:31] LABS: Alanine Aminotransferase 37 U/L (6-50); Albumin Level 4.5 g/dL (3.5-5.1); Alkaline Phosphatase 113 U/L (38-126); Anion Gap 5 mmol/L (4-12); Aspartate Amino Transferase 31 U/L (17-59); Bilirubin,Total 0.6 mg/dL (0.2-1.3); Blood Urea Nitrogen 17 mg/dL (9-20); Calcium 9.5 mg/dL (8.4-10.2); Carbon Dioxide 27 mmol/L (22-30); Chloride 104 mmol/L (98-107); Estimated CRCL calculation 97 ml/min; Estimated Glomerular Filt Rate > 60; Glucose 89 mg/dL (65-110); Lipase 976 U/L (23-300); Potassium 4.1 mmol/L (3.4-5.0); Sodium 136 mmol/L (137-145)
== END 2024-05-18 01:06 | disposition home or self-care (01) ==
PROVIDERS: Emergency Provider Physician Assistant; PCP Student in an Organized Health Care Education/Training Program
DX: R74.8 Abnormal levels of other serum enzymes (principal); I10 Essential (primary) hypertension; Z87.891 Personal history of nicotine dependence
CPT/HCPCS: 36415; 80053; 81003; 83690; 85025; 96374; 96375; 99284; J1885; J2405